=== PATIENT | female | born 1955 | race Caucasian/White ===

== ENCOUNTER 2020-06-29 10:24 | Inpatient (IN) | payer MEDICARE, MEDICAID, SELFPAY ==
[2020-06-29] VITALS (8 sets, daily range): BP systolic 86–154; BP diastolic 40–74; PULSE 59–75; RESP 9–18; TEMP 36.6–36.7; O2SAT 96–99; BMI 25.7
--- NOTE | 2020-06-29 11:10 | ED_ITS ---
HPI - Altered Mental Status General Chief Complaint: Weakness Stated Complaint: AMS,H/O DEMENTIA Time Seen by Provider: 06/29/20 11:07 Source: patient and EMS Mode of arrival: EMS Limitations: altered mental status History of Present Illness MD complaint: altered mental status Onset (ago): unknown (chronic) Severity: moderate Consistency of symptoms: waxing and waning Context: history of similar presentation Associated symptoms: other (reportedly BP was low in 80 or 70s this AM) Related Data Allergies Allergy/AdvReac Type Severity Reaction Status Date / Time No Known Allergies Allergy Verified 06/29/20 11:12 Review of Systems Review of Systems: ROS unable to be obtained due to altered mental status [facility] Past Medical History Attestation statement: The following information was validated with the patient. Medical History Altered mental status Alzheimer disease Diabetes type 2, uncontrolled Metabolic encephalopathy Social History Social History Smoking Status: Unknown if ever smoked Smoked in Last 30 Days: No Use of substances other than those prescribed or required for medical reasons: No Advance Directives: No Advance Directives Information Provided: Yes Physical Exam Vital Signs and I&O and Narrative: Vital Signs and I&O: Vital Signs Temp 97.9 F 06/29/20 13:13 Pulse 65 06/29/20 14:59 Resp 9 L 06/29/20 14:59 BP 127/62 06/29/20 14:59 Pulse Ox 98 06/29/20 14:59 Intake & Output 06/28/20 06/29/20 06/29/20 18:59 06:59 18:59 Weight 59.8 kg Body Mass Index 25.7 Const: General: cooperative, healthy appearing and no acute distress HENMT: Head: Yes normal to inspection Mouth: Normal oral and palatal mucosa present Eyes: General: appearance normal, both eyes and all related structures Pupils: Equal, round and reactive pupils present Neck: Neck: Yes normal visual inspection and Yes trachea midline Chest: Chest palpation & inspection: normal inspection of the chest Resp: Effort & Inspection: normal respiratory effort Auscultation: clear to auscultation bilaterally Cardio: Rate: regular rate Rhythm: regular rhythm Peripheral pulses: Peripheral pulses 2+ throughout GI: Palpation (GI): Soft to palpation and nontender Skin: General skin exam: no rashes or lesions noted Neuro: General: moves all extremities Cranial nerves: Yes Equal, round and reactive pupils present Motor exam (neuro): 5/5 motor strength present throughout Extrem: General: Yes no pedal edema Psych: Appearance: grossly normal Course Course Hospital Course: no obvious source of infection at this time, possible UTI suspected at 2:34pm, added on 2.5L of fluids and ceftriaxone her BP has dropped in the ED but remained asymptomatic, no other acute findings at this time, will admit for further workup Reevaluation(s) Reevaluation #1: BP stable at this time, no obvious cause of hypotension and lactic acidosis, will admit for further workup MDM - Altered Mental Status MDM Narrative Medical decision making narrative: AMS patient with hx of same reportedly had low BPs, currently BP normal, at this time will need labs, CXR, UA, gentle hydration Lab Data Result diagrams: 06/29/20 11:37 06/29/20 11:37 Labs: Lab Results 06/29/20 06/29/20 06/29/20 Range/Units 11:37 11:37 11:37 WBC 8.8 (4.8-10.8) X10*3/uL RBC 3.72 L (4.20-5.50) X10*6/uL Hgb 10.9 L (12.0-16.0) g/dl Hct 33.2 L (37-47) % MCV 89.2 (80-98) fL MCH 29.3 (27.0-33.0) pg MCHC 32.8 (31.0-35.0) g/dl RDW 14.3 (11.0-16.0) % Plt Count 337 (160-400) X10*3/uL MPV 9.8 (9.4-12.3) fL Immature Gran % (Auto) 0.3 (0.0-0.4) % Neut % (Auto) 73.4 H (45-73) % Lymph % (Auto) 18.5 L (20-40) % [place] % (Auto) 7.0 (2-11) % Eos % (Auto) 0.5 (0-4) % Baso % (Auto) 0.3 (0-2) % Neut # (Auto) 6.4 (2.0-8.3) X10*3/uL Lymph # (Auto) 1.6 (1.2-4.9) X10*3/uL [place] # (Auto) 0.6 (0.1-1.2) X10*3/uL Eos # (Auto) 0.0 (0.0-0.4) X10*3/uL Baso # (Auto) 0.0 (0.0-0.2) X10*3/uL Abs Immat Gran (auto) 0.03 (0.00-0.03) X10*3/uL Absolute Nucleated RBC 0.000 (0.0-0.012) X10*3/uL Nucleated RBC % (auto) 0.0 (0.0-0.2) /100WBC Hold Blue Top SEE NOTE Sodium 138 (135-145) mmol/L Potassium 5.2 H (3.3-5.1) mmol/l Chloride 106 (96-108) mmol/L Carbon Dioxide 23 (22-29) mmol/L Anion Gap 14 (12-20) BUN 15 (9-16) mg/dL Creatinine (0.5-1.4) mg/dL Estim Creat Clear Calc 53.8 Estimated GFR > 60 Random Glucose 222 H (60-115) mg/dL Lactic Acid (0.5-2.0) mmol/L Lactic Acid Fup @ 2Hr (0.5-2.0) mmol/L Calcium 9.4 (8.4-10.2) mg/dL Magnesium 1.2 L* (1.6-2.6) mg/dL Total Bilirubin 0.5 (0.0-1.0) mg/dL Direct Bilirubin 0.2 (0.0-0.5) mg/dL AST 13 (5-31) U/L ALT 17 (0-31) U/L Alkaline Phosphatase 61 (39-117) U/L Troponin I High Sens (<3.5-17.0) ng/L Total Protein 6.5 (6.5-8.0) g/dL Albumin 3.9 (3.5-5.0) g/dL Lipase 38 (8-78) U/L Urine Color Urine Appearance Urine pH (5.0-8.0) Ur Specific [place] (1.005-1.025) Urine Protein (NEG-TRACE) MG/DL Urine Glucose (UA) (NEG) MG/DL Urine Ketones (NEG) MG/DL Urine Blood (NEG) Urine Nitrite (NEG) Ur Leukocyte Esterase (NEG) 06/29/20 06/29/20 06/29/20 Range/Units 11:37 11:37 13:57 WBC (4.8-10.8) X10*3/uL RBC (4.20-5.50) X10*6/uL Hgb (12.0-16.0) g/dl Hct (37-47) % MCV (80-98) fL MCH (27.0-33.0) pg MCHC (31.0-35.0) g/dl RDW (11.0-16.0) % Plt Count (160-400) X10*3/uL MPV (9.4-12.3) fL Immature Gran % (Auto) (0.0-0.4) % Neut % (Auto) (45-73) % Lymph % (Auto) (20-40) % [place] % (Auto) (2-11) % Eos % (Auto) (0-4) % Baso % (Auto) (0-2) % Neut # (Auto) (2.0-8.3) X10*3/uL Lymph # (Auto) (1.2-4.9) X10*3/uL [place] # (Auto) (0.1-1.2) X10*3/uL Eos # (Auto) (0.0-0.4) X10*3/uL Baso # (Auto) (0.0-0.2) X10*3/uL Abs Immat Gran (auto) (0.00-0.03) X10*3/uL Absolute Nucleated RBC (0.0-0.012) X10*3/uL Nucleated RBC % (auto) (0.0-0.2) /100WBC Hold Blue Top Sodium (135-145) mmol/L Potassium (3.3-5.1) mmol/l Chloride (96-108) mmol/L Carbon Dioxide (22-29) mmol/L Anion Gap (12-20) BUN (9-16) mg/dL Creatinine (0.5-1.4) mg/dL Estim Creat Clear Calc Estimated GFR Random Glucose (60-115) mg/dL Lactic Acid 3.7 H* (0.5-2.0) mmol/L Lactic Acid Fup @ 2Hr (0.5-2.0) mmol/L Calcium (8.4-10.2) mg/dL Magnesium (1.6-2.6) mg/dL Total Bilirubin (0.0-1.0) mg/dL Direct Bilirubin (0.0-0.5) mg/dL AST (5-31) U/L ALT (0-31) U/L Alkaline Phosphatase (39-117) U/L Troponin I High Sens < 3.5 (<3.5-17.0) ng/L Total Protein (6.5-8.0) g/dL Albumin (3.5-5.0) g/dL Lipase (8-78) U/L Urine Color YELLOW Urine Appearance CLOUDY Urine pH 7.0 (5.0-8.0) Ur Specific [place] 1.015 (1.005-1.025) Urine Protein TRACE (NEG-TRACE) MG/DL Urine Glucose (UA) NEG (NEG) MG/DL Urine Ketones 5 (NEG) MG/DL Urine Blood NEG (NEG) Urine Nitrite NEG (NEG) Ur Leukocyte Esterase NEG (NEG) 06/29/20 Range/Units 14:01 WBC (4.8-10.8) X10*3/uL RBC (4.20-5.50) X10*6/uL Hgb (12.0-16.0) g/dl Hct (37-47) % MCV (80-98) fL MCH (27.0-33.0) pg MCHC (31.0-35.0) g/dl RDW (11.0-16.0) % Plt Count (160-400) X10*3/uL MPV (9.4-12.3) fL Immature Gran % (Auto) (0.0-0.4) % Neut % (Auto) (45-73) % Lymph % (Auto) (20-40) % [place] % (Auto) (2-11) % Eos % (Auto) (0-4) % Baso % (Auto) (0-2) % Neut # (Auto) (2.0-8.3) X10*3/uL Lymph # (Auto) (1.2-4.9) X10*3/uL [place] # (Auto) (0.1-1.2) X10*3/uL Eos # (Auto) (0.0-0.4) X10*3/uL Baso # (Auto) (0.0-0.2) X10*3/uL Abs Immat Gran (auto) (0.00-0.03) X10*3/uL Absolute Nucleated RBC (0.0-0.012) X10*3/uL Nucleated RBC % (auto) (0.0-0.2) /100WBC Hold Blue Top Sodium (135-145) mmol/L Potassium (3.3-5.1) mmol/l Chloride (96-108) mmol/L Carbon Dioxide (22-29) mmol/L Anion Gap (12-20) BUN (9-16) mg/dL Creatinine (0.5-1.4) mg/dL Estim Creat Clear Calc Estimated GFR Random Glucose (60-115) mg/dL Lactic Acid (0.5-2.0) mmol/L Lactic Acid Fup @ 2Hr 3.2 H* (0.5-2.0) mmol/L Calcium (8.4-10.2) mg/dL Magnesium (1.6-2.6) mg/dL Total Bilirubin (0.0-1.0) mg/dL Direct Bilirubin (0.0-0.5) mg/dL AST (5-31) U/L ALT (0-31) U/L Alkaline Phosphatase (39-117) U/L Troponin I High Sens (<3.5-17.0) ng/L Total Protein (6.5-8.0) g/dL Albumin (3.5-5.0) g/dL Lipase (8-78) U/L Urine Color Urine Appearance Urine pH (5.0-8.0) Ur Specific [place] (1.005-1.025) Urine Protein (NEG-TRACE) MG/DL Urine Glucose (UA) (NEG) MG/DL Urine Ketones (NEG) MG/DL Urine Blood (NEG) Urine Nitrite (NEG) Ur Leukocyte Esterase (NEG) ECG Data ECG #1: Attestation: I personally reviewed and interpreted this ECG as follows: Interpretation: normal sinus rhythm 62, low volate QRS normal p waves and rob, nonspecific ST T waves, no ischemia no artifact Discharge Plan Discharge Clinical Impression: Acute hypotension, Lactic acid acidosis Patient Disposition: Admitted As Inpatient
--- NOTE | 2020-06-29 11:10 | XR_ITS ---
EXAMINATION: XR CHEST, PORTABLE CLINICAL INFORMATION: Altered mental status COMPARISON: Report chest radiographs 10/08/2018, films unavailable TECHNIQUE: Portable upright AP view of the chest is performed. FINDINGS: The lungs are clear. The vascularity is normal. There is no vascular congestion, airspace consolidation, groundglass opacity. No effusion. The heart is normal in size. The hilar and mediastinal contours and visualized bony structures are unremarkable. IMPRESSION: Normal chest.
[2020-06-29 11:49] LABS: MANUAL DIFF FLAG NO
[2020-06-29 11:51] LABS: Basophils Percent Auto 0.3 % (0-2); Eosinophils Percent Auto 0.5 % (0-4); Hematocrit 33.2 % (37-47); Hemoglobin 10.9 g/dl (12.0-16.0); Imm Gran Abs Auto 0.03 X10*3/uL (0.00-0.03); Imm Gran Pct Auto 0.3 % (0.0-0.4); Lymphocytes Absolute Auto 1.6 X10*3/uL (1.2-4.9); Lymphocytes Percent Auto 18.5 % (20-40); Mean Corpuscular HGB Conc 32.8 g/dl (31.0-35.0); Mean Corpuscular Hemoglobin 29.3 pg (27.0-33.0); Mean Corpuscular Volume 89.2 fL (80-98); Mean Platelet Volume 9.8 fL (9.4-12.3); Monocytes Absolute Auto 0.6 X10*3/uL (0.1-1.2); Neutrophils Absolute Auto 6.4 X10*3/uL (2.0-8.3); Neutrophils Percent Auto 73.4 % (45-73); Platelet Count 337 X10*3/uL (160-400); Red Blood Count 3.72 X10*6/uL (4.20-5.50); Red Cell Distribution Width 14.3 % (11.0-16.0); White Blood Count 8.8 X10*3/uL (4.8-10.8)
[2020-06-29] MEDS: 0.9 % Sodium Chloride 500 ML IV (11:55)
[2020-06-29 12:16] LABS: Alanine Aminotransferase 17 U/L (0-31); Albumin Level 3.9 g/dL (3.5-5.0); Alkaline Phosphatase 61 U/L (39-117); Aspartate Amino Transferase 13 U/L (5-31); Bilirubin Direct 0.2 mg/dL (0.0-0.5); Bilirubin Total 0.5 mg/dL (0.0-1.0); Blood Urea Nitrogen 15 mg/dL (9-16); Calcium 9.4 mg/dL (8.4-10.2); Creatinine Clr Calc Pharmacy 53.8; Estimated Glomerular Filt Rate > 60; Glucose Random 222 mg/dL (60-115); Lactic Acid 3.7 mmol/L (0.5-2.0); Lipase 38 U/L (8-78); Total Protein 6.5 g/dL (6.5-8.0)
[2020-06-29 12:17] LABS: Troponin-I High Sensitivity < 3.5 ng/L (<3.5-17.0)
[2020-06-29 12:31] LABS: Anion Gap 14 (12-20); Carbon Dioxide 23 mmol/L (22-29); Chloride 106 mmol/L (96-108); Magnesium 1.2 mg/dL (1.6-2.6); Potassium 5.2 mmol/l (3.3-5.1); Sodium 138 mmol/L (135-145)
[2020-06-29] MEDS: 0.9 % Sodium Chloride 500 ML 999 ML IV (13:12)
[2020-06-29] MEDS: Magnesium Sulfate/H2O 2 GM/50 ML PIGGYBACK IV (13:25)
--- NOTE | 2020-06-29 13:26 | PC.NURSE ---
PT IN BED APPEARS AT BASELINE IV FLUIDS INFUSING
[2020-06-29 13:47] LABS: Reflex Lactate? Lactic Acid Added
--- NOTE | 2020-06-29 13:51 | PC.NURSE ---
[facility] staff update of pts status
[2020-06-29 14:25] LABS: Glucose Urine UA NEG (NEG); Leukocyte Esterase Urine NEG (NEG); Nitrite Urine NEG (NEG); Specific Gravity - Urine 1.015 (1.005-1.025); Urine Blood NEG (NEG); Urine Ketones 5 MG/DL (NEG); Urine Protein TRACE MG/DL (NEG-TRACE)
[2020-06-29 14:30] LABS: Appearance Urine CLOUDY; Color Urine YELLOW
[2020-06-29] MEDS: 0.9 % Sodium Chloride 500 ML 1000 ML IV (14:43)
[2020-06-29 14:49] LABS: ~Lactic Acid-LAB USE ONLY 3.2 mmol/L (0.5-2.0)
[2020-06-29] MEDS: cefTRIAXone sodium 1 GM in 0.9 % Sodium Chloride 50 ML IV (14:50)
--- NOTE | 2020-06-29 15:26 | PC.NURSE ---
call made down to lab. microscopic ua added to urinalysis.
[2020-06-29 15:39] LABS: Bacteria Urine 2+ /LPF; RBC Urine 0-2 /HPF (0); Squamous Epithelial Cell Urine 1+ /LPF; Triple Phosphate Crystal Urine 1+ /LPF
[2020-06-29 15:40] LABS: Amorphous Sediment Urine 2+ /LPF
[2020-06-29 16:03] LABS: Reflex Lactate? 2 Y
[2020-06-29 16:17] LABS: ~Lactic Acid-LAB USE ONLY 2.7 mmol/L (0.5-2.0)
--- NOTE | 2020-06-29 16:56 | PC.NURSE ---
hospitalist to bedside. pt needs frequent repositioning in bed. alert but not oriented to person, place or time. active hallucinations, easily redirectable. expecting order for admission.
--- NOTE | 2020-06-29 17:16 | PM.IMHP ---
History of Present Illness Date of Service: 06/29/20 Chief Complaint: sent from SNF for change in mental status This is a 65-year-old female with a past medical history as documented below who is a resident at [facility] where it was noted that the patient had changes in her mental status and as such she was sent to the emergency room. Due to the patient's baseline dementia as well as current confusion history is basically obtained from the ED providers report and notes. Apparently, earlier on the day of admission patient was more confused than her baseline self. There were some reports of unresponsiveness but no further details regarding this. Additionally, some reports of low blood pressure at the halfway facility as well. Upon arrival to the emergency room, patient to underwent basic workup including a UA which was possibly suggestive of urinary tract infection. She had low blood pressure readings in the emergency room which responded to fluid boluses. Her lactate was also elevated greater than 3 but down trending after fluids. She was given a dose of ceftriaxone and admission was requested. Patient is seen and examined the emergency room. She is completely disoriented, even to self. He denies any pain however. Review of Systems Review of Systems: Yes Unobtainable due to mental status Neurologic: Reports confusion Psychiatric: Psychiatric: Reports confusion [facility] Medical History (Updated 06/29/20 @ 17:50 by Chance Harrington MD) Altered mental status Alzheimer disease Diabetes type 2, uncontrolled Hypertension Metabolic encephalopathy NSTEMI (non-ST elevated myocardial infarction) Pertinent family history: unable to obtain, due to mental status chart review shows DM in brother and father Social History Smoking Status: Unknown if ever smoked Smoked in Last 30 Days: No Use of substances other than those prescribed or required for medical reasons: No Advance Directives: No Advance Directives Information Provided: Yes Meds Allergies Allergy/AdvReac Type Severity Reaction Status Date / Time No Known Allergies Allergy Verified 06/29/20 11:12 Home Medications Medication Instructions Recorded Confirmed Type acetaminophen 650 mg PO Q6H PRN 06/29/20 06/29/20 History aspirin 81 mg PO DAILY 06/29/20 06/29/20 History atorvastatin 80 mg PO BEDTIME 06/29/20 06/29/20 History bisacodyl 10 mg ND DAILY PRN 06/29/20 06/29/20 History clopidogrel 75 mg PO DAILY 06/29/20 06/29/20 History docusate sodium 100 mg PO BID 06/29/20 06/29/20 History insulin glargine [Lantus U-100 12 unit SUBCUT QPM 06/29/20 06/29/20 History Insulin] insulin lispro [Humalog U-100 1 sliding scale dose SUBCUT 06/29/20 06/29/20 History Insulin] USEASDIRECTD isosorbide mononitrate [Imdur] 30 mg PO DAILY 06/29/20 06/29/20 History magnesium hydroxide [Milk of 30 ml PO BEDTIME PRN 06/29/20 06/29/20 History Magnesia] memantine 5 mg PO QPM 06/29/20 06/29/20 History metformin 1,000 mg PO BID 06/29/20 06/29/20 History metoprolol tartrate 25 mg PO BID 06/29/20 06/29/20 History polyethylene glycol 3350 [Miralax] 17 g PO DAILY 06/29/20 06/29/20 History Physical Exam Vital Signs and Narrative: Vital Signs: Last Vital Signs Temp 97.9 F 06/29/20 13:13 Pulse 65 06/29/20 14:59 Resp 9 L 06/29/20 14:59 BP 127/62 06/29/20 14:59 Pulse Ox 98 06/29/20 14:59 Body Mass Index 25.7 Const: General: cooperative, healthy appearing, no acute distress and confusion Orientation/consciousness: confusion Eyes: Pupils: Equal, round and reactive pupils present Neck: Yes supple Chest: Chest palpation & inspection: normal inspection of the chest Resp: Effort & Inspection: normal respiratory effort and able to speak in complete sentences Auscultation: clear to auscultation bilaterally Cardio: Jugular venous distension: no JVD Rhythm: regular rhythm Heart sounds: S1 normal heart sound present and S2 normal heart sound present GI: Inspection: Yes normal to inspection Palpation (GI): Soft to palpation Auscultation: normal bowel sounds Skin: General skin exam: no rashes or lesions noted Neuro: General: confusion Cranial nerves: Yes Equal, round and reactive pupils present Motor exam (neuro): Other motor observations present ( no motor deficit) Results Labs Labs: Laboratory Tests 06/29/20 06/29/20 06/29/20 11:37 11:37 11:37 WBC 8.8 RBC 3.72 L Hgb 10.9 L Hct 33.2 L MCV 89.2 MCH 29.3 MCHC 32.8 RDW 14.3 Plt Count 337 MPV 9.8 Immature Gran % (Auto) 0.3 Neut % (Auto) 73.4 H Lymph % (Auto) 18.5 L [place] % (Auto) 7.0 Eos % (Auto) 0.5 Baso % (Auto) 0.3 Neut # (Auto) 6.4 Lymph # (Auto) 1.6 [place] # (Auto) 0.6 Eos # (Auto) 0.0 Baso # (Auto) 0.0 Abs Immat Gran (auto) 0.03 Absolute Nucleated RBC 0.000 Nucleated RBC % (auto) 0.0 Hold Blue Top SEE NOTE Sodium 138 Potassium 5.2 H Chloride 106 Carbon Dioxide 23 Anion Gap 14 BUN 15 Creatinine Estim Creat Clear Calc 53.8 Estimated GFR > 60 Random Glucose 222 H Lactic Acid Lactic Acid Fup @ 2Hr Lactic Acid Fup @ 4Hr Calcium 9.4 Magnesium 1.2 L* Total Bilirubin 0.5 Direct Bilirubin 0.2 AST 13 ALT 17 Alkaline Phosphatase 61 Troponin I High Sens Total Protein 6.5 Albumin 3.9 Lipase 38 Urine Color Urine Appearance Urine pH Ur Specific [place] Urine Protein Urine Glucose (UA) Urine Ketones Urine Blood Urine Nitrite Ur Leukocyte Esterase Urine RBC Urine WBC Ur Squamous Epith Cells Triple Phos Crystals Amorphous Sediment Urine Bacteria 06/29/20 06/29/20 06/29/20 11:37 11:37 13:57 WBC RBC Hgb Hct MCV MCH MCHC RDW Plt Count MPV Immature Gran % (Auto) Neut % (Auto) Lymph % (Auto) [place] % (Auto) Eos % (Auto) Baso % (Auto) Neut # (Auto) Lymph # (Auto) [place] # (Auto) Eos # (Auto) Baso # (Auto) Abs Immat Gran (auto) Absolute Nucleated RBC Nucleated RBC % (auto) Hold Blue Top Sodium Potassium Chloride Carbon Dioxide Anion Gap BUN Creatinine Estim Creat Clear Calc Estimated GFR Random Glucose Lactic Acid 3.7 H* Lactic Acid Fup @ 2Hr Lactic Acid Fup @ 4Hr Calcium Magnesium Total Bilirubin Direct Bilirubin AST ALT Alkaline Phosphatase Troponin I High Sens < 3.5 Total Protein Albumin Lipase Urine Color YELLOW Urine Appearance CLOUDY Urine pH 7.0 Ur Specific [place] 1.015 Urine Protein TRACE Urine Glucose (UA) NEG Urine Ketones 5 Urine Blood NEG Urine Nitrite NEG Ur Leukocyte Esterase NEG Urine RBC 0-2 Urine WBC 5-9 H Ur Squamous Epith Cells 1+ Triple Phos Crystals 1+ Amorphous Sediment 2+ Urine Bacteria 2+ 06/29/20 06/29/20 14:01 15:19 WBC RBC Hgb Hct MCV MCH MCHC RDW Plt Count MPV Immature Gran % (Auto) Neut % (Auto) Lymph % (Auto) [place] % (Auto) Eos % (Auto) Baso % (Auto) Neut # (Auto) Lymph # (Auto) [place] # (Auto) Eos # (Auto) Baso # (Auto) Abs Immat Gran (auto) Absolute Nucleated RBC Nucleated RBC % (auto) Hold Blue Top Sodium Potassium Chloride Carbon Dioxide Anion Gap BUN Creatinine Estim Creat Clear Calc Estimated GFR Random Glucose Lactic Acid Lactic Acid Fup @ 2Hr 3.2 H* Lactic Acid Fup @ 4Hr 2.7 H* Calcium Magnesium Total Bilirubin Direct Bilirubin AST ALT Alkaline Phosphatase Troponin I High Sens Total Protein Albumin Lipase Urine Color Urine Appearance Urine pH Ur Specific [place] Urine Protein Urine Glucose (UA) Urine Ketones Urine Blood Urine Nitrite Ur Leukocyte Esterase Urine RBC Urine WBC Ur Squamous Epith Cells Triple Phos Crystals Amorphous Sediment Urine Bacteria Assessment and Plan (1) Acute UTI: Status: Acute (2) Primary hypomagnesemia: Status: Acute (3) Lactic acid acidosis: Status: Acute This is a 65-year-old female with a past medical history of Alzheimer's dementia, appears to be advanced to presents from halfway facility with complaints of worsening baseline confusion along with low blood pressure. She is admitted for urinary tract infection 1. UTI rocephin f/u culures 2. LA / Hypotension improved with fluids monitor 3. Toxic/Metabolic encephalopathy due to above + baseline dementia hopefully will improve with treatment of uti 4. DM diabetic diet POC QIDAC 5. HTN hold bp meds 6. HypoMg repleted in the ED check tomorrow Full Code DVT pptx, subcut. heparin
--- NOTE | 2020-06-29 17:26 | PC.NURSE ---
CALL MADE OUT OUT TO [facility] FOR REPORT
[2020-06-29 21:30] LABS: Glucose, Whole Blood 77 mg/dL (60-115)
[2020-06-29] MEDS: Heparin Sodium,Porcine 5,000 UNIT/ML VIAL 5000 UNIT SUBCUT (21:52)
[2020-06-29] MEDS: Atorvastatin Calcium 80 MG TABLET PO (21:52)
[2020-06-29] MEDS: Docusate Sodium 100 MG CAPSULE PO (21:54)
[2020-06-29] MEDS: Memantine HCl 5 MG TABLET PO (22:05)
[2020-06-30 00:45] VITALS: BP 142/70; PULSE 66; RESP 16; TEMP 36.1; O2SAT 99
[2020-06-30] MEDS: 0.9 % Sodium Chloride Flush 3 ML SYRINGE 2 ML IVFLUSH ×2 (03:29→09:09)
[2020-06-30 03:32] VITALS: BP 134/64; PULSE 75; RESP 17; O2SAT 100
[2020-06-30 04:00] VITALS: BP 134/68; PULSE 69; RESP 16; TEMP 36.5; O2SAT 97
[2020-06-30 05:27] LABS: MANUAL DIFF FLAG NO
[2020-06-30 05:32] LABS: Basophils Percent Auto 0.5 % (0-2); Eosinophils Absolute Auto 0.1 X10*3/uL (0.0-0.4); Eosinophils Percent Auto 1.1 % (0-4); Hematocrit 31.8 % (37-47); Hemoglobin 10.7 g/dl (12.0-16.0); Imm Gran Abs Auto 0.01 X10*3/uL (0.00-0.03); Imm Gran Pct Auto 0.2 % (0.0-0.4); Lymphocytes Absolute Auto 1.8 X10*3/uL (1.2-4.9); Lymphocytes Percent Auto 33.2 % (20-40); Mean Corpuscular HGB Conc 33.6 g/dl (31.0-35.0); Mean Corpuscular Hemoglobin 29.6 pg (27.0-33.0); Mean Corpuscular Volume 87.8 fL (80-98); Mean Platelet Volume 10.1 fL (9.4-12.3); Monocytes Absolute Auto 0.5 X10*3/uL (0.1-1.2); Monocytes Percent Auto 8.4 % (2-11); Neutrophils Absolute Auto 3.1 X10*3/uL (2.0-8.3); Neutrophils Percent Auto 56.6 % (45-73); Platelet Count 310 X10*3/uL (160-400); Red Blood Count 3.62 X10*6/uL (4.20-5.50); Red Cell Distribution Width 14.4 % (11.0-16.0); White Blood Count 5.5 X10*3/uL (4.8-10.8)
[2020-06-30 06:10] LABS: Anion Gap 13 (12-20); Blood Urea Nitrogen 10 mg/dL (9-16); Calcium 8.8 mg/dL (8.4-10.2); Carbon Dioxide 22 mmol/L (22-29); Chloride 107 mmol/L (96-108); Creatinine Clr Calc Pharmacy 71.1; Estimated Glomerular Filt Rate > 60; Glucose Random 97 mg/dL (60-115); Potassium 3.7 mmol/l (3.3-5.1); Sodium 138 mmol/L (135-145)
[2020-06-30 07:34] LABS: Glucose, Whole Blood 104 mg/dL (60-115)
[2020-06-30 08:00] VITALS: BP 153/69; PULSE 70; RESP 18; TEMP 36.6; O2SAT 100
[2020-06-30 08:27] LABS: Glucose, Whole Blood 116 mg/dL (60-115)
[2020-06-30] MEDS: Docusate Sodium 100 MG CAPSULE PO (09:08)
[2020-06-30] MEDS: Isosorbide Mononitrate 30 MG TAB.ER.24H PO (09:08)
[2020-06-30] MEDS: Aspirin 81 MG TAB.CHEW PO (09:08)
[2020-06-30] MEDS: Clopidogrel Bisulfate 75 MG TABLET PO (09:09)
[2020-06-30] MEDS: Heparin Sodium,Porcine 5,000 UNIT/ML VIAL 5000 UNIT SUBCUT (09:09)
[2020-06-30] MEDS: polyethylene glycoL 3350 17 GM POWD.PACK PO (11:09)
[2020-06-30 11:31] LABS: Glucose, Whole Blood 171 mg/dL (60-115)
[2020-06-30 12:00] VITALS: BP 116/63; PULSE 83; RESP 18; TEMP 36.7; O2SAT 99
[2020-06-30] MEDS: Insulin Lispro 100 UNIT/ML 3 ML VIAL SUBCUT (12:15)
--- NOTE | 2020-06-30 12:48 | PM.DS ---
DS: Providers Provider Date of admission: 06/29/20 17:33 Primary care physician: Unknown Physician DS: Diagnosis Discharge Diagnosis (1) Acute UTI: Status: Acute (2) Primary hypomagnesemia: Status: Acute (3) Lactic acid acidosis: Status: Acute (4) Toxic encephalopathy: Status: Acute DS: Summary Hospital Course Hospital Course: 65-year-old female with dementia, resident at [facility] where it was noted that the patient had changes in her mental status and as such she was sent to the emergency room. Due to the patient's baseline dementia as well as current confusion history is basically obtained from the ED providers report and notes. Apparently, earlier on the day of admission patient was more confused than her baseline self. There were some reports of unresponsiveness but no further details regarding this. Additionally, some reports of low blood pressure at the shelter facility as well. Upon arrival to the emergency room, patient to underwent basic workup including a UA which was possibly suggestive of urinary tract infection. She had low blood pressure readings in the emergency room which responded to fluid boluses. Her lactate was also elevated greater than 3 but down trending after fluids. She was given a dose of ceftriaxone and admission was requested. Patient is seen and examined the emergency room. She is completely disoriented, even to self. He denies any pain however. Hospital Course: 1. UTI--treated with IV Ceftriaxone and IVF for sepsis component with hypotension. Sepsis has resolved. She is afebrile now and will transition to Oral Ceftin for 7 days. 2. Hypotension due to sepsis this has resolved. 3. Hypomagnesemai--replacing with IV mag and will discharge with oral magnesium. Magnesium level is now 2 4. Encephalopathy-- due to UTI, at baseline Time Spent with Patient Time attestation: Total time spent providing and/or coordinating discharge services: Physical Exam Vital Signs and I&O and Narrative: Vital Signs and I&O: Vital Signs Temp 98.1 F 06/30/20 12:00 Pulse 83 06/30/20 12:00 Resp 18 06/30/20 12:00 BP 116/63 06/30/20 12:00 Pulse Ox 99 06/30/20 12:00 DS: Data Data Completed and Pending Labs on day of discharge: Labs from last 24 hours 06/30/20 06/30/20 06/30/20 11:28 08:24 07:26 WBC RBC Hgb Hct MCV MCH MCHC RDW Plt Count MPV Immature Gran % (Auto) Neut % (Auto) Lymph % (Auto) [place] % (Auto) Eos % (Auto) Baso % (Auto) Neut # (Auto) Lymph # (Auto) [place] # (Auto) Eos # (Auto) Baso # (Auto) Abs Immat Gran (auto) Absolute Nucleated RBC Nucleated RBC % (auto) Sodium Potassium Chloride Carbon Dioxide Anion Gap BUN Creatinine Estim Creat Clear Calc Estimated GFR POC Glucose 171 H 116 H 104 Random Glucose Lactic Acid Fup @ 2Hr Lactic Acid Fup @ 4Hr Calcium Urine Color Urine Appearance Urine pH Ur Specific [place] Urine Protein Urine Glucose (UA) Urine Ketones Urine Blood Urine Nitrite Ur Leukocyte Esterase Urine RBC Urine WBC Ur Squamous Epith Cells Triple Phos Crystals Amorphous Sediment Urine Bacteria 06/30/20 06/30/20 06/29/20 05:06 05:06 21:26 WBC 5.5 RBC 3.62 L Hgb 10.7 L Hct 31.8 L MCV 87.8 MCH 29.6 MCHC 33.6 RDW 14.4 Plt Count 310 MPV 10.1 Immature Gran % (Auto) 0.2 Neut % (Auto) 56.6 Lymph % (Auto) 33.2 [place] % (Auto) 8.4 Eos % (Auto) 1.1 Baso % (Auto) 0.5 Neut # (Auto) 3.1 Lymph # (Auto) 1.8 [place] # (Auto) 0.5 Eos # (Auto) 0.1 Baso # (Auto) 0.0 Abs Immat Gran (auto) 0.01 Absolute Nucleated RBC 0.000 Nucleated RBC % (auto) 0.0 Sodium 138 Potassium 3.7 D Chloride 107 Carbon Dioxide 22 Anion Gap 13 BUN 10 Creatinine 0.62 Estim Creat Clear Calc 71.1 Estimated GFR > 60 POC Glucose 77 Random Glucose 97 D Lactic Acid Fup @ 2Hr Lactic Acid Fup @ 4Hr Calcium 8.8 Urine Color Urine Appearance Urine pH Ur Specific [place] Urine Protein Urine Glucose (UA) Urine Ketones Urine Blood Urine Nitrite Ur Leukocyte Esterase Urine RBC Urine WBC Ur Squamous Epith Cells Triple Phos Crystals Amorphous Sediment Urine Bacteria 06/29/20 06/29/20 06/29/20 15:19 14:01 13:57 WBC RBC Hgb Hct MCV MCH MCHC RDW Plt Count MPV Immature Gran % (Auto) Neut % (Auto) Lymph % (Auto) [place] % (Auto) Eos % (Auto) Baso % (Auto) Neut # (Auto) Lymph # (Auto) [place] # (Auto) Eos # (Auto) Baso # (Auto) Abs Immat Gran (auto) Absolute Nucleated RBC Nucleated RBC % (auto) Sodium Potassium Chloride Carbon Dioxide Anion Gap BUN Creatinine Estim Creat Clear Calc Estimated GFR POC Glucose Random Glucose Lactic Acid Fup @ 2Hr 3.2 H* Lactic Acid Fup @ 4Hr 2.7 H* Calcium Urine Color YELLOW Urine Appearance CLOUDY Urine pH 7.0 Ur Specific [place] 1.015 Urine Protein TRACE Urine Glucose (UA) NEG Urine Ketones 5 Urine Blood NEG Urine Nitrite NEG Ur Leukocyte Esterase NEG Urine RBC 0-2 Urine WBC 5-9 H Ur Squamous Epith Cells 1+ Triple Phos Crystals 1+ Amorphous Sediment 2+ Urine Bacteria 2+ 06/29/20 11:37 WBC RBC Hgb Hct MCV MCH MCHC RDW Plt Count MPV Immature Gran % (Auto) Neut % (Auto) Lymph % (Auto) [place] % (Auto) Eos % (Auto) Baso % (Auto) Neut # (Auto) Lymph # (Auto) [place] # (Auto) Eos # (Auto) Baso # (Auto) Abs Immat Gran (auto) Absolute Nucleated RBC Nucleated RBC % (auto) Sodium Potassium Chloride Carbon Dioxide Anion Gap BUN Creatinine Estim Creat Clear Calc Estimated GFR POC Glucose Random Glucose Lactic Acid Fup @ 2Hr Lactic Acid Fup @ 4Hr Calcium Urine Color Urine Appearance Urine pH Ur Specific [place] Urine Protein Urine Glucose (UA) Urine Ketones Urine Blood Urine Nitrite Ur Leukocyte Esterase Urine RBC Urine WBC Ur Squamous Epith Cells Triple Phos Crystals Amorphous Sediment Urine Bacteria Preliminary micro results at discharge 06/29/20 16:00 Urine Culture - Preliminary Urine clean catch - Clean Catch Midstream Gram negative marshall Discharge Plan Discharge Anticipated Discharge Date/Time: 06/30/20 12:34 Patient Disposition: Xfer SNF Referrals: [facility] [Outside] (RETURN TO [facility] TODAY ) Physician,Unknown [Primary Care Provider] - Discharge Medications: New cefuroxime axetil 500 mg tablet 500 mg PO BID 7 Days Qty: 14 RF: 0 Continued atorvastatin 80 mg Tablet 80 mg PO BEDTIME RF: 0 acetaminophen 325 mg Tablet 650 mg PO Q6H PRN (Reason: Mild Pain (Scale Score 1-4)) RF: 0 Lantus U-100 Insulin 100 unit/mL Solution 12 unit SUBCUT QPM RF: 0 polyethylene glycol 3350 [Miralax] 17 gram Powder In Packet 17 g PO DAILY RF: 0 isosorbide mononitrate [Imdur] 30 mg Tablet Extended Release 24 Hr 30 mg PO DAILY RF: 0 clopidogrel 75 mg Tablet 75 mg PO DAILY RF: 0 magnesium hydroxide [Milk of Magnesia] 400 mg/5 mL Suspension 30 ml PO BEDTIME PRN (Reason: Constipation) RF: 0 bisacodyl 10 mg Suppository 10 mg TX DAILY PRN (Reason: Constipation) RF: 0 metformin 1,000 mg Tablet 1,000 mg PO BID RF: 0 docusate sodium 100 mg Capsule 100 mg PO BID RF: 0 aspirin 81 mg Tablet 81 mg PO DAILY RF: 0 insulin lispro [Humalog U-100 Insulin] 100 unit/mL Solution 1 sliding scale dose SUBCUT USEASDIRECTD RF: 0 memantine 5 mg Tablet 5 mg PO QPM RF: 0 metoprolol tartrate 25 mg Tablet 25 mg PO BID RF: 0 Discharge Orders: Discharge Order (Routine); Ordered 06/30/20 Ordered By: García Morley Diet: advance to your usual diet Activity on Discharge: As tolerated Visit Report Forms: Patient Portal Discharge page Care Plan Goals: Resolution of UTI and prevent rehospitalization Health Concerns: UTI Plan of Treatment: Take Ceftin as directed and follow up with your Doctor in a week
--- NOTE | 2020-06-30 13:48 | MHC.CM.PN ---
PT WILL DISCHARGE BACK TO [facility] TODAY AT 1700 HOURS VIA [facility]. CM CONTACTED PTS ERIC HAMILTON AND INFORMED HER OF PTS DC. IMM DELIVERED
[2020-06-30] MEDS: cefTRIAXone sodium 1 GM in 0.9 % Sodium Chloride 50 ML IV (13:59)
[2020-06-30 14:00] LABS: Lactic Acid 2.3 mmol/L (0.5-2.0)
[2020-06-30 14:13] LABS: Magnesium 1.5 mg/dL (1.6-2.6)
[2020-06-30 15:21] LABS: Magnesium 1.5 mg/dL (1.6-2.6)
[2020-06-30 15:27] LABS: Reflex Lactate? Lactic Acid Added
[2020-06-30 16:00] VITALS: BP 143/79; PULSE 72; RESP 18; TEMP 36.6; O2SAT 99
[2020-06-30 16:17] LABS: ~Lactic Acid-LAB USE ONLY 1.9 mmol/L (0.5-2.0)
[2020-06-30 17:12] LABS: Glucose, Whole Blood 142 mg/dL (60-115)
[2020-06-30 17:23] LABS: Glucose, Whole Blood 142 mg/dL (60-115)
== END 2020-06-30 17:45 | disposition skilled nursing facility (03) | DRG 689 ==
LOC: HO.ED 15:49 → HO.IMC 17:34
PROVIDERS: Admitting Provider Family Medicine; Emergency Provider Emergency Medicine; Visit Provider Internal Medicine
DX: N39.0 Urinary tract infection, site not specified (principal); G92 Toxic encephalopathy; E87.2 Acidosis; I95.9 Hypotension, unspecified; E11.9 Type 2 diabetes mellitus without complications; I10 Essential (primary) hypertension; E83.42 Hypomagnesemia; G30.9 Alzheimer's disease, unspecified; F02.80 Dementia in other diseases classified elsewhere, unspecified severity, without behavioral disturbance, psychotic disturbance, mood disturbance, and anxiety; Z79.4 Long term (current) use of insulin; Z79.02 Long term (current) use of antithrombotics/antiplatelets; Z79.82 Long term (current) use of aspirin; Z79.899 Other long term (current) drug therapy
CPT/HCPCS: 36415; 71045; 80048; 80076; 81003; 81015; 82947; 83605; 83690; 83735; 84484; 85025; 87040; 87086; 87186; 96361; 96365; 96367; 99284; 99285; J0696

== ENCOUNTER 2022-07-01 10:53 | Inpatient (IN) | payer MEDICARE, MEDICAID, SELFPAY ==
--- NOTE | ~2022-07-01 | XR_ITS ---
EXAMINATION: XR CHEST CLINICAL INFORMATION: Altered mental status. COMPARISON: 06/29/2020 chest radiograph. TECHNIQUE: Frontal view of the chest was obtained. FINDINGS: No significant abnormality is noted involving the heart, lungs, mediastinum, bony thorax or soft tissues. XR/XR chest 1V IMPRESSION: No acute cardiopulmonary process.
--- NOTE | ~2022-07-01 | CT_ITS ---
EXAMINATION: CT HEAD WITHOUT CONTRAST CLINICAL INFORMATION: Unresponsive COMPARISON: PET/CT 02/03/2019 TECHNIQUE: Imaging was performed from the skull base to vertex without intravenous administration of contrast. This CT examination was performed using dose optimization techniques as appropriate, variously including the following: *Automated exposure control *Adjustment of mA and/or kV according to patient size (this includes techniques or standardized protocols for targeted exams where dose is matched to indication/reason for exam; i.e. extremities or head) *Use of iterative reconstruction technique Total exam dose length product: 733 mGy-cm FINDINGS: No intra or extra-axial fluid collection, hemorrhage, or mass. No ventriculomegaly. No midline shift or herniation. Basal cisterns are patent. Kan-white matter differentiation is maintained. No territorial encephalomalacia. Proportional prominence of the ventricles and sulcal spaces is consistent with moderate volume loss. Patchy periventricular and deep white matter hypoattenuation is consistent with moderate small vessel ischemic changes. Small focus of hypoattenuation compatible with prior lacunar infarct in the left lentiform nucleus, unchanged. Small remote infarct in the right cerebellar hemisphere, also unchanged. No calvarial fracture or soft tissue abnormality. The mastoid air cells and visualized portions of the paranasal sinuses are well aerated. CT/CT head/brain wo IV con IMPRESSION: 1. No acute intracranial pathology.
--- NOTE | 2022-07-01 10:58 | ECG_ITS ---
Test Reason : ams Blood Pressure : / mmHG Vent. Rate : 065 BPM Atrial Rate : 065 BPM P-R Int : 136 ms QRS Dur : 062 ms QT Int : 408 ms P-R-T Axes : 067 028 066 degrees QTc Int : 424 ms Normal sinus rhythm Low voltage QRS Borderline ECG When compared with ECG of 29-JUN-2020 11:20, No significant change was found Referred By: Erin Stephenson Electronically Signed By:ABRAHAN KRUGER
--- NOTE | 2022-07-01 11:00 | ED.AMS ---
HPI - Altered Mental Status General Chief Complaint: Altered Mental Status Stated Complaint: UNRESPONSIVE Time Seen by Provider: 07/01/22 10:58 Source: EMS and old records reviewed Mode of arrival: EMS Limitations: altered mental status History of Present Illness HPI narrative: 67 yo year old female with history of early-onset Alzheimer's dementia, HTN, HLD, diabetes, CVA who presents to the ER for evaluation of altered mental status, hypotension and hypoxia. Patient had her morning meds around 09:30 at her nursing facility. Patient was found shortly thereafter minimally responsive with low blood pressure and low oxygen saturations. At baseline she is altered, withdraws to pain. On EMS arrival patient had blood pressure 90/50s, IV was established and IV fluids were started. POC was 200. On arrival to the ER patient is afebrile and hemodynamically stable. She is withdrawing to painful stimuli and grimacing to sternal rub. Not opening eyes or following commands. MD complaint: altered mental status Onset (ago): minute(s) Timing confirmed by: caregiver Severity: severe Consistency of symptoms: constant Treatments prior to arrival: IV fluid Related Data Home Medications Medication Instructions Recorded Confirmed acetaminophen 325 mg tablet 650 mg PO Q12H PRN Mild Pain 06/29/20 07/01/22 (Scale Score 1-4) atorvastatin 80 mg tablet 80 mg PO BEDTIME 06/29/20 07/01/22 bisacodyl 10 mg rectal suppository 10 mg VT DAILY PRN Constipation 06/29/20 07/01/22 clopidogrel 75 mg tablet 75 mg PO DAILY 06/29/20 07/01/22 docusate sodium 100 mg capsule 100 mg PO BID 06/29/20 07/01/22 insulin glargine 100 unit/mL 12 unit subcut DAILY 06/29/20 07/01/22 subcutaneous solution (Lantus U-100 Insulin) isosorbide mononitrate 30 mg 30 mg PO DAILY 06/29/20 07/01/22 tablet,extended release 24 hr magnesium hydroxide 400 mg/5 mL 30 ml PO DAILY PRN Constipation 06/29/20 07/01/22 oral suspension (Milk of Magnesia) metformin 1,000 mg tablet 1,000 mg PO BID 06/29/20 07/01/22 metoprolol tartrate 25 mg tablet 25 mg PO BID 06/29/20 07/01/22 polyethylene glycol 3350 17 gram 17 g PO DAILY 06/29/20 07/01/22 oral powder packet (Miralax) aspirin 81 mg tablet,delayed 81 mg PO DAILY 07/01/22 07/01/22 release lidocaine 4 % topical patch 1 patch topical DAILY 07/01/22 07/01/22 magnesium 200 mg tablet 400 mg PO DAILY@0700,1400,2000 07/01/22 07/01/22 Allergies Allergy/AdvReac Type Severity Reaction Status Date / Time No Known Allergies Allergy Verified 06/29/20 11:12 Review of Systems Review of Systems: Yes Unobtainable due to mental status [facility] Past Medical History Medical History (Updated 07/01/22 @ 15:03 by DOMINGA Causey) Altered mental status Alzheimer disease Diabetes type 2, uncontrolled Hypertension Lactic acid acidosis Metabolic encephalopathy NSTEMI (non-ST elevated myocardial infarction) Social History Social History Household Members: None Housing: [facility] Advance Directives: No Advance Directives Information Provided: Yes service: No Current occupational status: disabled Physical Exam ED Vital Signs: Vital Signs - 24 hr 07/01/22 11:02 07/01/22 12:00 07/01/22 13:26 Temperature 98.5 F Pulse Rate 69 66 69 Respiratory Rate 24 H 16 14 Blood Pressure 132/56 L 132/55 L 138/66 Pulse Oximetry 97 97 98 Oxygen Delivery Method Room Air Room Air Room Air BMI result Body Mass Index 23.8 Appearance: minimally responsive elderly female, no distress Eyes: Pupils equal, round and reactive to light. ENT: Pharynx normal. Neck: Normal inspection. Neck supple. CVS: Normal heart rate and rhythm. Pulses normal. Respiratory: No respiratory distress. Breath sounds normal. Abdomen: Soft and nontender. +BS x4 Skin: Skin warm and dry. Normal skin color. Normal skin turgor. No rashes. Extremities: thin frail extremities, no lower extremity edema, cool to the touch with 2+ distal pulses. Neuro: lethargic, withdraws to pain, moves all extremities, non verbal. GCS 6 Course Course Course Narrative: 67 yo female with history of early onset Alzhemier's dementia, DM, HTN, HLD, CVA, hx sepsis w/ encephalopathy presenting from SNF minimally responsive, hypotesnive and hypoxic (unknown, arrives on O2). She is hemodynamically stable on arrival but altered, grimacing to sternal rub and noxious stimuli. She is protecting her airway. Afebrile. Will get CT head, metabolic workup. IVF ordered. Will call SNF and see what her baseline mental status is. Reevaluation(s) Reevaluation #1: Spoke with nurse at SNF - at baseline she is sitting up in the chair, awake and alert, minimally verbal and confused. She remains altered from her baseline. Lab workup so far is showing lactic acid 2.9. Glucose 275. K 5.4. No acidosis or hypercarbia. CXR clear. Troponin negative. TSH and ammonia normal. IVF infusing. Reevaluation #2: UA grossly positive for infection. Ordered for IV rocephin. She remains significantly altered from her baseline. She is protecting her airway. She is a full code. Will plan for admission. MDM - Altered Mental Status Lab Data Attestation: I reviewed the patient's lab results. Result diagrams: 07/01/22 11:39 07/01/22 11:39 Labs: Lab Results 07/01/22 07/01/22 07/01/22 Range/Units 11:01 11:38 11:39 WBC 7.3 (4.8-10.8) X10*3/uL RBC 3.68 L (4.20-5.50) X10*6/uL Hgb 10.9 L (12.0-16.0) g/dl Hct 33.7 L (37.0-47.0) % MCV 91.6 (80.0-98.0) fL MCH 29.6 (27.0-33.0) pg MCHC 32.3 (31.0-35.0) g/dl RDW 12.6 (11.0-16.0) % Plt Count 313 (160-400) X10*3/uL MPV 10.1 (9.4-12.3) fL Immature Gran % (Auto) 0.4 (0.0-0.4) % Neut % (Auto) 72.3 (45-73) % Lymph % (Auto) 19.1 L (20-40) % [place] % (Auto) 7.4 (2-11) % Eos % (Auto) 0.5 (0-4) % Baso % (Auto) 0.3 (0-2) % Lymph # (Auto) 1.4 (1.2-4.9) X10*3/uL [place] # (Auto) 0.5 (0.1-1.2) X10*3/uL Eos # (Auto) 0.0 (0.0-0.4) X10*3/uL Baso # (Auto) 0.0 (0.0-0.2) X10*3/uL Abs Immat Gran (auto) 0.03 (0.00-0.03) X10*3/uL Absolute Neuts (auto) 5.3 (2.0-8.3) x10*3/uL Absolute Nucleated RBC 0.000 (0.0-0.012) X10*3/uL Nucleated RBC % (auto) 0.0 (0.0-0.2) /100WBC PT (10.0-13.1) SEC INR (0.9-1.1) APTT (26.0-36.4) SEC VBG pH (7.32-7.43) VBG pCO2 mmHg VBG pO2 mmHg VBG HCO3 (22-26) mmol/L VBG O2 Saturation % VBG Base Excess mmol/L Sodium (135-145) mmol/L Potassium (3.3-5.1) mmol/L Chloride (96-108) mmol/L Carbon Dioxide (22-29) mmol/L Anion Gap (12-20) BUN (9-16) mg/dL Creatinine (0.5-1.4) mg/dL Estim Creat Clear Calc Estimated GFR POC Glucose 232 H (60-115) mg/dL Random Glucose (60-115) mg/dL Lactic Acid 2.9 H* (0.5-2.0) mmol/L Lactic Acid F/U @ 2Hr (0.5-2.0) mmol/L Calcium (8.4-10.2) mg/dL Magnesium (1.6-2.6) mg/dL Total Bilirubin (0.0-1.0) mg/dL Direct Bilirubin (0.0-0.5) mg/dL AST (5-31) U/L ALT (0-31) U/L Alkaline Phosphatase (39-117) U/L Ammonia (13-55) umol/L Troponin I High Sens (<3.5-17.0) ng/L B-Natriuretic Peptide (<100) pg/mL Total Protein (6.5-8.0) g/dL Albumin (3.5-5.0) g/dL Procalcitonin ng/mL TSH (0.32-4.0) uIU/mL Urine Color Urine Appearance Urine pH (5.0-9.0) Ur Specific [place] (1.005-1.025) Urine Protein (Neg-Trace) mg/dL Urine Glucose (UA) (Negative) mg/dL Urine Ketones (Negative) mg/dL Urine Blood (Negative) Urine Nitrite (Negative) Ur Leukocyte Esterase (Negative) Urine RBC (0-2) /HPF Urine WBC (0-5) /HPF Ur Squamous Epith Cells (0-2) /HPF Urine Bacteria (None Seen) Hyaline Casts (0-2) /LPF Urine Opiates Screen (Not Detect) Urine Fentanyl Screen (Not Detect) Ur Barbiturates Screen (Not Detect) Ur Phencyclidine Scrn (Not Detect) Ur Amphetamines Screen (Not Detect) U Benzodiazepines Scrn (Not Detect) Urine Cocaine Screen (Not Detect) U Marijuana (THC) Screen (Not Detect) COVID-19 (KIRTI) (Negative) COVID-19 Clin Com Influenza Type A (MARY) (Negative) Influenza Type B (MARY) (Negative) Influenza A & B Note 07/01/22 07/01/22 07/01/22 Range/Units 11:39 11:39 11:39 WBC (4.8-10.8) X10*3/uL RBC (4.20-5.50) X10*6/uL Hgb (12.0-16.0) g/dl Hct (37.0-47.0) % MCV (80.0-98.0) fL MCH (27.0-33.0) pg MCHC (31.0-35.0) g/dl RDW (11.0-16.0) % Plt Count (160-400) X10*3/uL MPV (9.4-12.3) fL Immature Gran % (Auto) (0.0-0.4) % Neut % (Auto) (45-73) % Lymph % (Auto) (20-40) % [place] % (Auto) (2-11) % Eos % (Auto) (0-4) % Baso % (Auto) (0-2) % Lymph # (Auto) (1.2-4.9) X10*3/uL [place] # (Auto) (0.1-1.2) X10*3/uL Eos # (Auto) (0.0-0.4) X10*3/uL Baso # (Auto) (0.0-0.2) X10*3/uL Abs Immat Gran (auto) (0.00-0.03) X10*3/uL Absolute Neuts (auto) (2.0-8.3) x10*3/uL Absolute Nucleated RBC (0.0-0.012) X10*3/uL Nucleated RBC % (auto) (0.0-0.2) /100WBC PT 11.9 (10.0-13.1) SEC INR 1.0 (0.9-1.1) APTT 29.5 (26.0-36.4) SEC VBG pH (7.32-7.43) VBG pCO2 mmHg VBG pO2 mmHg VBG HCO3 (22-26) mmol/L VBG O2 Saturation % VBG Base Excess mmol/L Sodium 139 (135-145) mmol/L Potassium 5.4 H (3.3-5.1) mmol/L Chloride 104 (96-108) mmol/L Carbon Dioxide 22 (22-29) mmol/L Anion Gap 18 (12-20) BUN 22 H (9-16) mg/dL Creatinine 0.79 (0.5-1.4) mg/dL Estim Creat Clear Calc 53.1 Estimated GFR > 60 POC Glucose (60-115) mg/dL Random Glucose 275 H (60-115) mg/dL Lactic Acid (0.5-2.0) mmol/L Lactic Acid F/U @ 2Hr (0.5-2.0) mmol/L Calcium 9.5 D (8.4-10.2) mg/dL Magnesium 1.6 (1.6-2.6) mg/dL Total Bilirubin 0.3 (0.0-1.0) mg/dL Direct Bilirubin 0.2 (0.0-0.5) mg/dL AST 26 D (5-31) U/L ALT 18 (0-31) U/L Alkaline Phosphatase 66 (39-117) U/L Ammonia (13-55) umol/L Troponin I High Sens < 3.5 (<3.5-17.0) ng/L B-Natriuretic Peptide 103 H (<100) pg/mL Total Protein 7.2 (6.5-8.0) g/dL Albumin 3.9 (3.5-5.0) g/dL Procalcitonin ng/mL TSH 3.19 (0.32-4.0) uIU/mL Urine Color Urine Appearance Urine pH (5.0-9.0) Ur Specific [place] (1.005-1.025) Urine Protein (Neg-Trace) mg/dL Urine Glucose (UA) (Negative) mg/dL Urine Ketones (Negative) mg/dL Urine Blood (Negative) Urine Nitrite (Negative) Ur Leukocyte Esterase (Negative) Urine RBC (0-2) /HPF Urine WBC (0-5) /HPF Ur Squamous Epith Cells (0-2) /HPF Urine Bacteria (None Seen) Hyaline Casts (0-2) /LPF Urine Opiates Screen (Not Detect) Urine Fentanyl Screen (Not Detect) Ur Barbiturates Screen (Not Detect) Ur Phencyclidine Scrn (Not Detect) Ur Amphetamines Screen (Not Detect) U Benzodiazepines Scrn (Not Detect) Urine Cocaine Screen (Not Detect) U Marijuana (THC) Screen (Not Detect) COVID-19 (KIRTI) (Negative) COVID-19 Clin Com Influenza Type A (MARY) (Negative) Influenza Type B (MARY) (Negative) Influenza A & B Note 07/01/22 07/01/22 07/01/22 Range/Units 11:39 11:39 11:39 WBC (4.8-10.8) X10*3/uL RBC (4.20-5.50) X10*6/uL Hgb (12.0-16.0) g/dl Hct (37.0-47.0) % MCV (80.0-98.0) fL MCH (27.0-33.0) pg MCHC (31.0-35.0) g/dl RDW (11.0-16.0) % Plt Count (160-400) X10*3/uL MPV (9.4-12.3) fL Immature Gran % (Auto) (0.0-0.4) % Neut % (Auto) (45-73) % Lymph % (Auto) (20-40) % [place] % (Auto) (2-11) % Eos % (Auto) (0-4) % Baso % (Auto) (0-2) % Lymph # (Auto) (1.2-4.9) X10*3/uL [place] # (Auto) (0.1-1.2) X10*3/uL Eos # (Auto) (0.0-0.4) X10*3/uL Baso # (Auto) (0.0-0.2) X10*3/uL Abs Immat Gran (auto) (0.00-0.03) X10*3/uL Absolute Neuts (auto) (2.0-8.3) x10*3/uL Absolute Nucleated RBC (0.0-0.012) X10*3/uL Nucleated RBC % (auto) (0.0-0.2) /100WBC PT (10.0-13.1) SEC INR (0.9-1.1) APTT (26.0-36.4) SEC VBG pH (7.32-7.43) VBG pCO2 mmHg VBG pO2 mmHg VBG HCO3 (22-26) mmol/L VBG O2 Saturation % VBG Base Excess mmol/L Sodium (135-145) mmol/L Potassium (3.3-5.1) mmol/L Chloride (96-108) mmol/L Carbon Dioxide (22-29) mmol/L Anion Gap (12-20) BUN (9-16) mg/dL Creatinine (0.5-1.4) mg/dL Estim Creat Clear Calc Estimated GFR POC Glucose (60-115) mg/dL Random Glucose (60-115) mg/dL Lactic Acid (0.5-2.0) mmol/L Lactic Acid F/U @ 2Hr (0.5-2.0) mmol/L Calcium (8.4-10.2) mg/dL Magnesium (1.6-2.6) mg/dL Total Bilirubin (0.0-1.0) mg/dL Direct Bilirubin (0.0-0.5) mg/dL AST (5-31) U/L ALT (0-31) U/L Alkaline Phosphatase (39-117) U/L Ammonia 19 (13-55) umol/L Troponin I High Sens (<3.5-17.0) ng/L B-Natriuretic Peptide (<100) pg/mL Total Protein (6.5-8.0) g/dL Albumin (3.5-5.0) g/dL Procalcitonin 0.02 ng/mL TSH (0.32-4.0) uIU/mL Urine Color Urine Appearance Urine pH (5.0-9.0) Ur Specific [place] (1.005-1.025) Urine Protein (Neg-Trace) mg/dL Urine Glucose (UA) (Negative) mg/dL Urine Ketones (Negative) mg/dL Urine Blood (Negative) Urine Nitrite (Negative) Ur Leukocyte Esterase (Negative) Urine RBC (0-2) /HPF Urine WBC (0-5) /HPF Ur Squamous Epith Cells (0-2) /HPF Urine Bacteria (None Seen) Hyaline Casts (0-2) /LPF Urine Opiates Screen (Not Detect) Urine Fentanyl Screen (Not Detect) Ur Barbiturates Screen (Not Detect) Ur Phencyclidine Scrn (Not Detect) Ur Amphetamines Screen (Not Detect) U Benzodiazepines Scrn (Not Detect) Urine Cocaine Screen (Not Detect) U Marijuana (THC) Screen (Not Detect) COVID-19 (KIRTI) Negative (Negative) COVID-19 Clin Com See Note Influenza Type A (MARY) (Negative) Influenza Type B (MARY) (Negative) Influenza A & B Note 07/01/22 07/01/22 07/01/22 Range/Units 11:39 11:40 11:51 WBC (4.8-10.8) X10*3/uL RBC (4.20-5.50) X10*6/uL Hgb (12.0-16.0) g/dl Hct (37.0-47.0) % MCV (80.0-98.0) fL MCH (27.0-33.0) pg MCHC (31.0-35.0) g/dl RDW (11.0-16.0) % Plt Count (160-400) X10*3/uL MPV (9.4-12.3) fL Immature Gran % (Auto) (0.0-0.4) % Neut % (Auto) (45-73) % Lymph % (Auto) (20-40) % [place] % (Auto) (2-11) % Eos % (Auto) (0-4) % Baso % (Auto) (0-2) % Lymph # (Auto) (1.2-4.9) X10*3/uL [place] # (Auto) (0.1-1.2) X10*3/uL Eos # (Auto) (0.0-0.4) X10*3/uL Baso # (Auto) (0.0-0.2) X10*3/uL Abs Immat Gran (auto) (0.00-0.03) X10*3/uL Absolute Neuts (auto) (2.0-8.3) x10*3/uL Absolute Nucleated RBC (0.0-0.012) X10*3/uL Nucleated RBC % (auto) (0.0-0.2) /100WBC PT (10.0-13.1) SEC INR (0.9-1.1) APTT (26.0-36.4) SEC VBG pH 7.40 (7.32-7.43) VBG pCO2 38 mmHg VBG pO2 35 mmHg VBG HCO3 24 (22-26) mmol/L VBG O2 Saturation 51.0 % VBG Base Excess -0.5 mmol/L Sodium (135-145) mmol/L Potassium (3.3-5.1) mmol/L Chloride (96-108) mmol/L Carbon Dioxide (22-29) mmol/L Anion Gap (12-20) BUN (9-16) mg/dL Creatinine (0.5-1.4) mg/dL Estim Creat Clear Calc Estimated GFR POC Glucose (60-115) mg/dL Random Glucose (60-115) mg/dL Lactic Acid (0.5-2.0) mmol/L Lactic Acid F/U @ 2Hr (0.5-2.0) mmol/L Calcium (8.4-10.2) mg/dL Magnesium (1.6-2.6) mg/dL Total Bilirubin (0.0-1.0) mg/dL Direct Bilirubin (0.0-0.5) mg/dL AST (5-31) U/L ALT (0-31) U/L Alkaline Phosphatase (39-117) U/L Ammonia (13-55) umol/L Troponin I High Sens (<3.5-17.0) ng/L B-Natriuretic Peptide (<100) pg/mL Total Protein (6.5-8.0) g/dL Albumin (3.5-5.0) g/dL Procalcitonin ng/mL TSH (0.32-4.0) uIU/mL Urine Color Yellow Urine Appearance Turbid Urine pH 6.5 (5.0-9.0) Ur Specific [place] 1.025 (1.005-1.025) Urine Protein 100 (2+) H (Neg-Trace) mg/dL Urine Glucose (UA) Negative (Negative) mg/dL Urine Ketones Trace (Negative) mg/dL Urine Blood Moderate (2+) H (Negative) Urine Nitrite Negative (Negative) Ur Leukocyte Esterase Large (3+) H (Negative) Urine RBC >20 H (0-2) /HPF Urine WBC >50 H (0-5) /HPF Ur Squamous Epith Cells >20 (0-2) /HPF Urine Bacteria 4+ (None Seen) Hyaline Casts 6-10 (0-2) /LPF Urine Opiates Screen (Not Detect) Urine Fentanyl Screen (Not Detect) Ur Barbiturates Screen (Not Detect) Ur Phencyclidine Scrn (Not Detect) Ur Amphetamines Screen (Not Detect) U Benzodiazepines Scrn (Not Detect) Urine Cocaine Screen (Not Detect) U Marijuana (THC) Screen (Not Detect) COVID-19 (KIRTI) (Negative) COVID-19 Clin Com Influenza Type A (MARY) Negative (Negative) Influenza Type B (MARY) Negative (Negative) Influenza A & B Note See Note 07/01/22 07/01/22 Range/Units 11:51 15:35 WBC (4.8-10.8) X10*3/uL RBC (4.20-5.50) X10*6/uL Hgb (12.0-16.0) g/dl Hct (37.0-47.0) % MCV (80.0-98.0) fL MCH (27.0-33.0) pg MCHC (31.0-35.0) g/dl RDW (11.0-16.0) % Plt Count (160-400) X10*3/uL MPV (9.4-12.3) fL Immature Gran % (Auto) (0.0-0.4) % Neut % (Auto) (45-73) % Lymph % (Auto) (20-40) % [place] % (Auto) (2-11) % Eos % (Auto) (0-4) % Baso % (Auto) (0-2) % Lymph # (Auto) (1.2-4.9) X10*3/uL [place] # (Auto) (0.1-1.2) X10*3/uL Eos # (Auto) (0.0-0.4) X10*3/uL Baso # (Auto) (0.0-0.2) X10*3/uL Abs Immat Gran (auto) (0.00-0.03) X10*3/uL Absolute Neuts (auto) (2.0-8.3) x10*3/uL Absolute Nucleated RBC (0.0-0.012) X10*3/uL Nucleated RBC % (auto) (0.0-0.2) /100WBC PT (10.0-13.1) SEC INR (0.9-1.1) APTT (26.0-36.4) SEC VBG pH (7.32-7.43) VBG pCO2 mmHg VBG pO2 mmHg VBG HCO3 (22-26) mmol/L VBG O2 Saturation % VBG Base Excess mmol/L Sodium (135-145) mmol/L Potassium (3.3-5.1) mmol/L Chloride (96-108) mmol/L Carbon Dioxide (22-29) mmol/L Anion Gap (12-20) BUN (9-16) mg/dL Creatinine (0.5-1.4) mg/dL Estim Creat Clear Calc Estimated GFR POC Glucose (60-115) mg/dL Random Glucose (60-115) mg/dL Lactic Acid (0.5-2.0) mmol/L Lactic Acid F/U @ 2Hr 1.5 (0.5-2.0) mmol/L Calcium (8.4-10.2) mg/dL Magnesium (1.6-2.6) mg/dL Total Bilirubin (0.0-1.0) mg/dL Direct Bilirubin (0.0-0.5) mg/dL AST (5-31) U/L ALT (0-31) U/L Alkaline Phosphatase (39-117) U/L Ammonia (13-55) umol/L Troponin I High Sens (<3.5-17.0) ng/L B-Natriuretic Peptide (<100) pg/mL Total Protein (6.5-8.0) g/dL Albumin (3.5-5.0) g/dL Procalcitonin ng/mL TSH (0.32-4.0) uIU/mL Urine Color Urine Appearance Urine pH (5.0-9.0) Ur Specific [place] (1.005-1.025) Urine Protein (Neg-Trace) mg/dL Urine Glucose (UA) (Negative) mg/dL Urine Ketones (Negative) mg/dL Urine Blood (Negative) Urine Nitrite (Negative) Ur Leukocyte Esterase (Negative) Urine RBC (0-2) /HPF Urine WBC (0-5) /HPF Ur Squamous Epith Cells (0-2) /HPF Urine Bacteria (None Seen) Hyaline Casts (0-2) /LPF Urine Opiates Screen Not Detected (Not Detect) Urine Fentanyl Screen Not Detected (Not Detect) Ur Barbiturates Screen Not Detected (Not Detect) Ur Phencyclidine Scrn Not Detected (Not Detect) Ur Amphetamines Screen Not Detected (Not Detect) U Benzodiazepines Scrn Not Detected (Not Detect) Urine Cocaine Screen Not Detected (Not Detect) U Marijuana (THC) Screen Not Detected (Not Detect) COVID-19 (KIRTI) (Negative) COVID-19 Clin Com Influenza Type A (MARY) (Negative) Influenza Type B (MARY) (Negative) Influenza A & B Note ECG Data ECG #1: Attestation: I personally reviewed and interpreted this ECG as follows: ECG interpretation date: 07/01/22 ECG interpretation time: 16:47 Prior ECG tracings: available for review Interpretation: normal sinus rhythm, low voltage QRS, HR 65, no ST segment elevations Critical Care Time Critical Care Time Critical Care Time: Yes Total Critical Care Time: 41 Attestation: I have personally provided critical care time exclusive of time spent on separately billable procedures. Time includes review of lab data, radiology results, discussion with consultants, and monitoring for potential decompensation. Intervention performed as documented. Discharge Plan Discharge Clinical Impression: Acute metabolic encephalopathy, Acute UTI Patient Disposition: Admitted As Inpatient
[2022-07-01 11:02] VITALS: BP 113/54; BP 132/56; PULSE 69; PULSE 73; RESP 24; TEMP 36.9; O2SAT 97; O2SAT 98; BMI 23.8
[2022-07-01 11:21] LABS: Glucose, Whole Blood 232 mg/dL (60-115)
[2022-07-01 11:45] LABS: MANUAL DIFF FLAG NO
[2022-07-01 11:45] LABS: Venous Blood Gas Refer to POC result
[2022-07-01 11:48] LABS: Basophils Percent Auto 0.3 % (0-2); Eosinophils Percent Auto 0.5 % (0-4); Hematocrit 33.7 % (37.0-47.0); Hemoglobin 10.9 g/dl (12.0-16.0); Imm Gran Abs Auto 0.03 X10*3/uL (0.00-0.03); Imm Gran Pct Auto 0.4 % (0.0-0.4); Lymphocytes Absolute Auto 1.4 X10*3/uL (1.2-4.9); Lymphocytes Percent Auto 19.1 % (20-40); Mean Corpuscular HGB Conc 32.3 g/dl (31.0-35.0); Mean Corpuscular Hemoglobin 29.6 pg (27.0-33.0); Mean Corpuscular Volume 91.6 fL (80.0-98.0); Mean Platelet Volume 10.1 fL (9.4-12.3); Monocytes Absolute Auto 0.5 X10*3/uL (0.1-1.2); Monocytes Percent Auto 7.4 % (2-11); Neutrophils Absolute Auto 5.3 x10*3/uL (2.0-8.3); Neutrophils Percent Auto 72.3 % (45-73); Platelet Count 313 X10*3/uL (160-400); Red Blood Count 3.68 X10*6/uL (4.20-5.50); Red Cell Distribution Width 12.6 % (11.0-16.0); White Blood Count 7.3 X10*3/uL (4.8-10.8)
[2022-07-01 11:52] LABS: Prothrombin Time 11.9 SEC (10.0-13.1)
[2022-07-01 11:55] LABS: Partial Thromboplastin Time 29.5 SEC (26.0-36.4)
[2022-07-01] MEDS: 0.9 % Sodium Chloride 1,000 ML 999 ML IVCONT (11:57)
[2022-07-01 11:59] LABS: Appearance Urine Turbid; Color Urine Yellow; Glucose Urine UA Negative (Negative); Leukocyte Esterase Urine Large (3+) (Negative); Nitrite Urine Negative (Negative); PH 6.5 (5.0-9.0); Specific Gravity - Urine 1.025 (1.005-1.025); UMIC TRIGGER UACC YES; Urine Blood Moderate (2+) (Negative); Urine Ketones Trace mg/dL (Negative); Urine Protein 100 (2+) mg/dL (Neg-Trace)
[2022-07-01 12:00] VITALS: BP 132/55; PULSE 66; RESP 16; O2SAT 97
[2022-07-01 12:02] LABS: Ammonia 19 umol/L (13-55)
[2022-07-01 12:04] LABS: Lactic Acid 2.9 mmol/L (0.5-2.0)
[2022-07-01 12:09] LABS: Alanine Aminotransferase 18 U/L (0-31); Albumin Level 3.9 g/dL (3.5-5.0); Alkaline Phosphatase 66 U/L (39-117); Anion Gap 18 (12-20); Aspartate Amino Transferase 26 U/L (5-31); Bilirubin Direct 0.2 mg/dL (0.0-0.5); Bilirubin Total 0.3 mg/dL (0.0-1.0); Blood Urea Nitrogen 22 mg/dL (9-16); COVID-19 Test Negative (Negative); Calcium 9.5 mg/dL (8.4-10.2); Carbon Dioxide 22 mmol/L (22-29); Chloride 104 mmol/L (96-108); Creatinine Clr Calc Pharmacy 53.1; Estimated Glomerular Filt Rate > 60; Glucose Random 275 mg/dL (60-115); IDNOW Serial# 16C4AD1C; IDNOW Serial# 9DB6401D; Influenza A Negative (Negative); Influenza B2 Negative (Negative); Magnesium 1.6 mg/dL (1.6-2.6); Potassium 5.4 mmol/L (3.3-5.1); Sodium 139 mmol/L (135-145); Total Protein 7.2 g/dL (6.5-8.0)
[2022-07-01 12:12] LABS: Bacteria Urine 4+ (None Seen); RBC Urine >20 /HPF (0-2); Squamous Epithelial Cell Urine >20 /HPF (0-2); UACC Culture Trigger YES; WBC Urine >50 /HPF (0-5)
[2022-07-01 12:12] LABS: B Type Natriuretic Peptide 103 pg/mL (<100); Troponin-I High Sensitivity < 3.5 ng/L (<3.5-17.0)
[2022-07-01 12:13] LABS: Amphetamine Screen Urine Not Detected (Not Detect); Barbiturates, Urine Not Detected (Not Detect); Benzodiazepines Screen Urine Not Detected (Not Detect); Cannabinoid Screen Urine Not Detected (Not Detect); Cocaine Screen Urine Not Detected (Not Detect); Fentanyl, urine Not Detected (Not Detect); Opiate Screen Urine Not Detected (Not Detect); Phencyclidine Screen Urine Not Detected (Not Detect)
[2022-07-01 12:27] LABS: TSH reflex Free T4 3.19 uIU/mL (0.32-4.0)
[2022-07-01 12:33] LABS: VBG Base Excess -0.5 mmol/L; VBG HCO3 24 mmol/L (22-26); VBG pCO2 38 mmHg; VBG pO2 35 mmHg
[2022-07-01 12:39] LABS: Procalcitonin 0.02 ng/mL
[2022-07-01] MEDS: cefTRIAXone sodium 1 GM in 0.9 % Sodium Chloride 50 ML IV (13:23)
[2022-07-01 13:26] VITALS: BP 138/66; PULSE 69; RESP 14; O2SAT 98
[2022-07-01 13:43] LABS: Reflex Lactate? Lactic Acid Added
--- NOTE | 2022-07-01 14:13 | PHA.MEDREC ---
Pharmacy Consult ? Medication Reconciliation Pharmacy has completed the medication reconciliation. Pt had med list from [facility]
[2022-07-01 15:52] LABS: ~Lactic Acid-LAB USE ONLY 1.5 mmol/L (0.5-2.0)
--- NOTE | 2022-07-01 17:02 | PM.IMHP ---
History of Present Illness Date of Service: 07/01/22 Chief Complaint: Altered mental status 67 year old female with from SNF with history of Alzheimer dementia, Diabetes type 2, Hypertension, CAD with NSTEMI (non-ST elevated myocardial infarction) in the past presenting with altered mental status. She reported in the morning was in her usual state and took her all her meds including BP meds and shortly thereafter she was less responsive and noted to by hypotensive and hypoxia. EMS reported BP of 90/50. WBC is normal, UA is grossly positive for UTI, BMP is ok other K of 5.4, lactic 2.9, sugar 200. Her blood pressure here has been at or above normal. She is somnolent but easily aroused now doesn't really say much, she moves all extremity, no facial features or stroke. Head CT no acute pathology. Ceftriaxone is given for UTI Review of Systems Review of Systems: confusion no fever Yes all other systems are reviewed and are negative [facility] Medical History Altered mental status Alzheimer disease Diabetes type 2, uncontrolled Hypertension Lactic acid acidosis Metabolic encephalopathy NSTEMI (non-ST elevated myocardial infarction) Social History Household Members: None Housing: Long-Term Advance Directives: No Advance Directives Information Provided: Yes service: No Current occupational status: disabled Meds Allergies Allergy/AdvReac Type Severity Reaction Status Date / Time No Known Allergies Allergy Verified 06/29/20 11:12 Active Medications: Current Medications Pharmacy Consult (Consult Rx Perform Med Rec) 1 each MISCELLANE ONCE PRN PRN Reason: Consult order Pharmacy Consult (Consult Rx Perform Med Rec) 1 each MISCELLANE ONCE PRN PRN Reason: Consult order Home Medications Medication Instructions Recorded Confirmed Last Taken Type acetaminophen 325 mg tablet 650 mg PO Q12H PRN Mild Pain 06/29/20 07/01/22 Unknown History (Scale Score 1-4) atorvastatin 80 mg tablet 80 mg PO BEDTIME 06/29/20 07/01/22 Unknown History bisacodyl 10 mg rectal suppository 10 mg [place] DAILY PRN Constipation 06/29/20 07/01/22 Unknown History clopidogrel 75 mg tablet 75 mg PO DAILY 06/29/20 07/01/22 Unknown History docusate sodium 100 mg capsule 100 mg PO BID 06/29/20 07/01/22 Unknown History insulin glargine 100 unit/mL 12 unit subcut DAILY 06/29/20 07/01/22 Unknown History subcutaneous solution (Lantus U-100 Insulin) isosorbide mononitrate 30 mg 30 mg PO DAILY 06/29/20 07/01/22 Unknown History tablet,extended release 24 hr magnesium hydroxide 400 mg/5 mL 30 ml PO DAILY PRN Constipation 06/29/20 07/01/22 Unknown History oral suspension (Milk of Magnesia) metformin 1,000 mg tablet 1,000 mg PO BID 06/29/20 07/01/22 Unknown History metoprolol tartrate 25 mg tablet 25 mg PO BID 06/29/20 07/01/22 Unknown History polyethylene glycol 3350 17 gram 17 g PO DAILY 06/29/20 07/01/22 Unknown History oral powder packet (Miralax) aspirin 81 mg tablet,delayed 81 mg PO DAILY 07/01/22 07/01/22 Unknown History release lidocaine 4 % topical patch 1 patch topical DAILY 07/01/22 07/01/22 Unknown History magnesium 200 mg tablet 400 mg PO DAILY@0700,1400,2000 07/01/22 07/01/22 Unknown History Physical Exam Vital Signs and Narrative: Vital Signs: Last Vital Signs Temp 98.5 F 07/01/22 11:02 Pulse 69 07/01/22 13:26 Resp 14 07/01/22 13:26 BP 138/66 07/01/22 13:26 Pulse Ox 98 07/01/22 13:26 O2 Del Method 07/01/22 13:26 BMI result Body Mass Index 23.8 Const: Other: Constitutional: Alert but confused, thin built Mental Status: Unable to assess Eyes: Pupils are equal, round and reactive to light. Ear, Nose and Throat: Oropharynx clear, mucous membranes moist. Respiratory: Clear to auscultation. No wheezing, rales or rhonchi. Cardiovascular: S1 S2 regular. No murmurs, rubs or gallops. Gastrointestinal: Abdomen soft, non-tender, non-distended. Normal bowel sounds.? Neurologic: Cranial nerves II-XII not able to assess. No focal neurological deficits. Moves all extremities spontaneously, she grabed me by hands with strong grasped on both sides Skin: No rashes or lesions.? Musculoskeletal: No cyanosis or clubbing. Psychiatric: Normal mood and affect? Results Labs CBC and Chem 7: 07/01/22 11:39 07/01/22 11:39 Imaging Radiologist's Impressions: Impressions Chest X-Ray 07/01/22 11:28 IMPRESSION: No acute cardiopulmonary process. Head CT 07/01/22 14:57 IMPRESSION: 1. No acute intracranial pathology. Assessment and Plan (1) Acute metabolic encephalopathy: Status: Acute (2) Acute UTI: Status: Acute (3) Toxic encephalopathy: Status: Acute Plan 67/F with [place] dementi, diabetes, hTN, h/o CAD recurent uti with metablic encephalopathy presenting AMS, hypotension that has now resolved and foud to have UTI and toxic metabolic encephalopathy as source of confusion #Toxic metabolic encephalopath--d/t UTI doesn't meet sepsis criteria -Treat underlying UTI -Hydration #UTI--cultures sent, started Ceftriaxone in ED and will continue and follow culture #lactic acidosis--likey related to Hypotension earlier, IVF and repeat #HypErKalemia of 5.4, monitor and repeat tomorrow #HypOtension--lowest SBP here is 90, Hypotenison not due to sepsis #Diabetes--hold Metformin, -SSI, chec sugar per SS protocol #HTN--BP is not low here and in fact presently hypertensive. Hold metoprolol, imdur for now and resume by morning if BP still high #CAD--no angina, continue lipitor, ASA, Plavix, metoprolo #HLD--Lipitor DVT: heparin Code: Admission to span at least 2 midnights for mangement toxicic metabolic encephalopathy due to UTI and need for IV antibiotics to halt progression to sepsis and mortality Quality Stroke Does the patient have a stroke diagnosis?: No VTE Prior VTE?: No VTE Risk Level:: Medical - moderate - high VTE Device Contraindication: Treatment Not Indicated VTE Drug Contraindication: N/A - Med Ordered
[2022-07-01 17:15] VITALS: BP 177/57; PULSE 63; RESP 16; O2SAT 100
--- NOTE | 2022-07-01 17:16 | PC.NURSE ---
Pt more responsive at this time. Opening eyes and responding to painful stimuli. Pt had multiple bouts of incontinence, cleaned and repositioned each time.
--- OUTSIDE RECORDS SUMMARY | 2022-07-01 17:53 | XMS_ITS | Continuity of Care Document ---
:1955 Author Organization [facility] Address [address] [place] [id number]- Care Team Providers Name Role Phone Kristal RUANO, Lila Primary Care [id number] Date(s): 02/16/20 - 02/26/[address] [address]- [facility] Encounter Diagnosis UTI symptoms (Final) - 02/16/20 Discharge Disposition: A-D/C Home Attending Physician: Galina RUANO, Dung Rowe Admitting Physician: Pelon Hillman MD Referring Physician: Not on Staff, Referring MD Allergies, Adverse Reactions, Alerts Substance Reaction Severity Status NKA Active Immunizations Not Given Vaccine Date Status Refusal Reason pneumococcal 13-valent vaccine 02/18/20 Not Given P atient Refuses Medications aspirin 81 mg oral delayed release tablet 81 mg, 1, tablet, By Mouth, Daily, # 30 tablet, Refills 11, Tot. Refills 11, Maintenance, 10/15/18 12:14:02 EST, Route to Pharmacy Electronically, [id number], [facility] Start Date: 10/15/18 Stop Date: 10/10/19 Status: Orderedatorvastatin 80 mg oral tablet 1 tablet = 80 mg, By Mouth, Daily, # 30 tablet, 3 Refills, Maintenance, Tablet, Route to Pharmacy Electronically, [id number], [facility] Start Date: 10/15/18 Stop Date: 02/12/19 Status: Orderedclopidogrel 75 mg oral tablet 75 mg, 1, tablet, By Mouth, Daily, # 30 tablet, Refills 0, Maintenance, 02/18/20 16:34:00 EDT Start Date: 02/18/20 Status: OrderedDocusate By Mouth, 2 times a day, 0 Refills, Maintenance, 02/26/20 9:55:00 EDT, Capsule Start Date: 02/26/20 Status: OrderedInsulin Lispro 2-10 units, Subcutaneous Injection, 3 times a day before meals, << Sliding Scale Comments >> 150 - 199 2 units Call if less than 100 200 - 249 4 units 250 - 299 6 units 300 - 349 8 units 350 - 399 10 units Call if greater than 400 <... Start Date: 02/26/20 Status: Orderedisosorbide mononitrate 30 mg oral tablet, extended release 30 mg, 1, tablet, By Mouth, Daily in AM, # 30 tablet, Refills 3, Tot. Refills 3, Maintenance, 10/15/18 12:15:03 EST, Route to Pharmacy Electronically, [id number], [facility] Start Date: 10/15/18 Stop Date: 02/12/19 Status: OrderedLantus 100 u/ml subcutaneous solution = 12 units, Subcutaneous Infusion, Daily at bedtime, 0 Refills, Maintenance, 10/12/18 16:24:46 EST Start Date: 10/12/18 Status: Orderedmemantine 5 mg oral tablet 1 tablet = 5 mg, By Mouth, Daily, # 30 tablet, 0 Refills, Maintenance, 02/18/20 16:34:00 EDT, Tablet Start Date: 02/18/20 Status: OrderedmetFORMIN 1000 mg oral tablet 1 tablet = 1,000 mg, By Mouth, 2 times a day, # 60 tablet, 0 Refills, Maintenance, 10/12/18 16:26:47EST, Tablet Start Date: 10/12/18 Status: Orderedmetoprolol 25 mg oral tablet 25 mg, By Mouth, 2 times a day, # 60 tablet, Refills 3, Tot. Refills 3, Maintenance, 10/15/18 12:19:42 EST, Route to Pharmacy Electronically, [id number], [facility], Please dispense 25mg BID; cancel the other pr... Start Date: 10/15/18 Stop Date: 02/12/19 Status: OrderedMiraLax Powder 1 pack/packet = 17 Gm, By Mouth, Daily, 0 Refills, Maintenance, 02/26/20 9:56:00 EDT, Powder Start Date: 02/26/20 Status: OrderedTylenol 325 mg oral tablet 650 mg, 2, tablet, By Mouth, Every 4 hours, PRN, Refills 0, Maintenance, Pain , Mild, 02/26/20 9:55:00 EDT Start Date: 02/26/20 Status: Ordered Problem List Condition Effective Dates Status Health Status Informant Altered mental status(Confirmed) Active Asthma(Confirmed) Active Carpal tunnel syndrome(Confirmed) Active Depressed(Confirmed) Active Dyslipidemia(Confirmed) Active Hypertension(Confirmed) Active Osteoarthritis(Confirmed) Active Type 2 diabetes mellitus(Confirmed) Active Results Orders for Microbiology Reports Name Date Blood Culture 02/16/20 Blood Culture #2 02/16/20 Microbiology Reports TEST:Blood Culture, Second Order STATUS:Auth (Verified) BODY SITE: SOURCE:Blood COLLECTED DATE/TIME:02/16/20 4:50 PMBlood Culture, Second Order SPECIMEN DESCRIPTION : BLOOD L HAND SPECIAL REQUESTS : NONE CULTURE : NO GROWTH 5 DAYS. REPORT STATUS : FINAL 02/21/2020TEST:Blood Culture STATUS:Auth (Verified) BODY SITE: SOURCE:Blood COLLECTED DATE/TIME:02/16/20 4:30 PMBlood Culture SPECIMEN DESCRIPTION : BLOOD R FOREARM SPECIAL REQUESTS : NONE CULTURE : NO GROWTH 5 DAYS. REPORT STATUS : FINAL 02/21/2020Radiology Reports Exam Date Time Procedure Performing Provider Status 02/21/20 2:58 PM Abdomen AP Ama Garcia; Auth ([facility] ed) Notes:(Abdomen AP) Reason For Exam: ConstipationRESULT: XR Abdomen AP XR Abdomen AP Reason: Constipation; Clinical Question(s): Constipation; Hx of Present Illness: Unresponsive COMPARISON: None. FINDINGS: Moderate amount of retained fecal material seen throughout the colon intermixed with air. There is no evidence of bowel obstruction or pneumoperitoneum. Stool and air extending to the level of the rectosigmoid colon. No radiographic evidence of organomegaly. No acute bony abnormalities. IMPRESSION: No acute abnormality. Moderate stool retention. WSN: [id number] Ordering Physician: Elizabeth Villasenor Dictated By: Ama Wood MD Dictated Date/Time: 02/21/20 3:27 pm Reviewed By: Ama Wood MD Signed By: Ama Wood MD Signed Date/Time: 02/21/20 3:27 pm Transcribed By: KELTON Transcribed Date/Time: 02/21/20 3:26 pm Exam Date Time Procedure Performing Provider Status 02/19/20 6:30 AM Wrist Comp Min 3 Views Left Beverly Espinoza; Nba (Verified) Notes:(Wrist Comp Min 3 Views Left) Reason For Exam: PainRESULT: Wrist Comp Min 3 Views Left Wrist 3 Views Left Reason: Pain with question of fracture. Patient unresponsive. COMPARISON: Left forearm 02/17/2020 FINDINGS: No fracture or dislocation. Intact radial and ulnar styloid processes. Mild widening of the scapholunate interval. Mild degenerative changes of the first carpometacarpal and triscaphe joints. Normal soft tissues. IMPRESSION: 1. No fracture or dislocation. 2. Mild degenerative changes of the first carpometacarpal and triscaphe joints. 3. Mild widening of the scapholunate interval. This may represent scapholunate ligamentous injury. I have personally reviewed the images and I agree with this report. WSN: [id number] Ordering Physician: Janiya Henriquez Dictated By: Rj House DO Dictated Date/Time: 02/19/20 12:41 p Reviewed By: Rony West MD Signed By: Rony West MD Signed Date/Time: 02/19/20 12:46 pm Transcribed By: CSB Transcribed Date/Time: 02/19/20 12:26 pm Exam Date Time Procedure Performing Provider Status 02/17/20 3:50 PM XR Hip w/Pelvis 2-3 View Right Ama Maria; Auth (Verified) Notes:(XR Hip w/Pelvis 2-3 View Right) Reason For Exam: PainRESULT: XR Hip w/Pelvis 2-3 View Right XR Hip w/Pelvis 2-3 View Right INDICATION: Pain. CLINICAL QUESTION: Fracture. HPI: Unresponsive. COMPARISON: None. FINDINGS: There is no fracture. The sacroiliac joints are normal. Normal hip joints without arthritic change. A large rectal stool ball is present, distending the rectum up to 9 cm. Bilateral vascular calcifications. IMPRESSION: 1. No fracture. 2. Distended rectum with a large stool ball. Please correlate clinically to exclude impaction. I have personally reviewed the images and I agree with this report. WSN: [id number] Ordering Physician: Elizabeth Villasenor Dictated By: Davey Acosta MD Dictated Date/Time: 02/17/20 4:01 pm Reviewed By: Marshall Weaver MD Signed By: Marshall Weaver MD Signed Date/Time: 02/17/20 4:06 pm Transcribed By: KELTON Transcribed Date/Time: 02/17/20 3:57 pm Exam Date Time Procedure Performing Provider Status 02/17/20 1:15 AM Elbow Min 3 Views Left Grodzicka , Tonya; Auth ( Verified) Notes:(Elbow Min 3 Views Left) Reason For Exam: PainRESULT: Elbow Min 3 Views Left Forearm 2 Views Left, Elbow Min 3 Views Left Reason: Pain; Clinical Question(s): Fracture; Hx of Present Illness: Unresponsive COMPARISON: None. FINDINGS: No fractures or bone lesions. There is degenerative change of the left elbow with bony proliferationalong the medial jointline as well as along the radial neck. Mild bony proliferation is also noted along the lateral aspect of the radial head articular surface. No evidence of elbow joint effusion or focal soft tissue swelling. Extensive vascular calcificationsseen. No radiopaque foreign body. IMPRESSION: No acute displaced fracture of the left forearm or elbow. I have personally reviewed the images and I agree with this report. WSN: [id number] Ordering Physician: Matheus Martin Dictated By: Tammy Pérez MD Dictated Date/Time: 02/17/20 7:38 am Reviewed By: Nury Neal MD Signed By: Nury Neal MD Signed Date/Time: 02/17/20 7:43 am Transcribed By: KELTON Transcribed Date/Time: 02/17/20 6:33 am Exam Date Time Procedure Performing Provider Status 02/17/20 1:15 AM Forearm 2 Views Left Grodzicka , Tonya; Auth (Ve rified) Notes:(Forearm 2 Views Left) Reason For Exam: PainRESULT: Forearm 2 Views Left Forearm 2 Views Left, Elbow Min 3 Views Left Reason: Pain; Clinical Question(s): Fracture; Hx of Present Illness: Unresponsive COMPARISON: None. FINDINGS: No fractures or bone lesions. There is degenerative change of the left elbow with bony proliferationalong the medial jointline as well as along the radial neck. Mild bony proliferation is also noted along the lateral aspect of the radial head articular surface. No evidence of elbow joint effusion or focal soft tissue swelling. Extensive vascular calcificationsseen. No radiopaque foreign body. IMPRESSION: No acute displaced fracture of the left forearm or elbow. I have personally reviewed the images and I agree with this report. WSN: [id number] Ordering Physician: Matheus Martin Dictated By: Tammy Pérez MD Dictated Date/Time: 02/17/20 7:38 am Reviewed By: Nury Neal MD Signed By: Nury Neal MD Signed Date/Time: 02/17/20 7:43 am Transcribed By: KELTON Transcribed Date/Time: 02/17/20 6:33 am Exam Date Time Procedure Performing Provider Status 02/17/20 1:15 AM Shoulder Min 2 Views Left Gonzálezdjaninea , Tonya; Aut h (Verified) Notes:(Shoulder Min 2 Views Left) Reason For Exam: PainRESULT: Shoulder Min 2 Views Left Shoulder Min 2 Views Left, 2 views Reason: Pain; Clinical Question(s): Fracture; Hx of Present Illness: Unresponsive COMPARISON: None. FINDINGS: No fracture or dislocation. No arthritic change of the glenohumeral joint. Normal AC joint and portions of the clavicle included on the exam. No calcification of the rotator cuff. Visualized portions of the lung are unremarkable. IMPRESSION: No acute displaced fracture or dislocation. . I have personally reviewed the images and I agree with this report. WSN: [id number] Ordering Physician: Matheus Martin Dictated By: Tammy Pérez MD Dictated Date/Time: 02/17/20 7:35 am Reviewed By: Nury Neal MD Signed By: Nury Neal MD Signed Date/Time: 02/17/20 7:40 am Transcribed By: KELTON Transcribed Date/Time: 02/17/20 6:29 am Exam Date Time Procedure Performing Provider Status 02/16/20 5:20 PM Chest Portable Jaret , Zayra; Auth (Verified ) Notes:(Chest Portable) Reason For Exam: AnginaRESULT: Chest Portable Chest Portable Reason: Angina; Clinical Question(s): Pneumonia; Hx of Present Illness: Unresponsive COMPARISON: None. FINDINGS: LINES AND TUBES: None. LUNGS AND PLEURA: Lung volumes are low. Patchy retrocardiac opacity. Bronchovascular crowding. No pleural effusion. No pneumothorax. HEART, MEDIASTINUM AND JOSE: Heart is normal in size. Normal mediastinal and hilar contour. BONES AND SOFT TISSUES: No acute abnormality. IMPRESSION: Low lung volumes with patchy retrocardiac opacity which may reflect atelectasis, aspiration, or infiltrate. WSN: [id number] Ordering Physician: Jimenez Reese Dictated By: Patrick Jaime MD Dictated Date/Time: 02/16/20 5:24 pm Reviewed By: Patrick Jaime MD Signed By: Patrick Jaime MD Signed Date/Time: 02/16/20 5:24 pm Transcribed By: KELTON Transcribed Date/Time: 02/16/20 5:23 pm Vital Signs Most recent to oldest 1 2 3 [Reference Range]: Height 163 cm 163 cm 163 cm (02/26/20 8:18 AM) (02/25/20 3:35 PM) (02/25/20 9:0 1 AM) Weight 63.4 kg 64.7 kg (02/22/20 3:45 PM) (02/17/20 1:40 AM) Oxygen Saturation [94-100 %] 100 % 99 % 100 % (02/26/20 8:18 AM) (02/26/20 3:00 AM) (02/25/20 11: 00 PM) Pulse Rate [55-90 bpm] 77 bpm 73 bpm 79 bpm (02/26/20 8:53 AM) (02/26/20 8:18 AM) (02/26/20 3:0 0 AM) Body Mass Index [18.5-24.99] 24.35 (02/17/20 1:40 AM) Blood Pressure [90-138/55-84 103/70 mm Hg 92/73 mm Hg 113 /70 mm Hg mm Hg] (02/26/20 8:53 AM) (02/26/20 8:18 AM) (02/26/20 3:0 0 AM) Respiratory Rate [16-30 18 br/min 21 br/min 21 br/mi n br/min] (02/26/20 8:18 AM) (02/26/20 3:00 AM) (02/25/20 11: 00 PM) Temperature [96.8-100.4 DegF] 97.4 DegF 97.8 DegF 98 DegF (02/26/20 8:18 AM) (02/26/20 3:00 AM) (02/25/20 11: 00 PM) Liters per Minute 2 L/min (02/21/20 8:09 AM) Mode of Delivery (Oxygen) Room air Room air Room a ir (02/26/20 8:18 AM) (02/26/20 3:00 AM) (02/25/20 11: 00 PM) Blood pressure sites Arm, right Arm, right Arm, right (02/26/20 8:18 AM) (02/26/20 3:00 AM) (02/25/20 11: 00 PM) Temperature Route Axillary Oral Oral (02/26/20 8:18 AM) (02/26/20 3:00 AM) (02/25/20 11: 00 PM) Dry Weight 64.7 kg (02/17/20 1:40 AM) Weight Obtained Via Bed scale (02/22/20 3:45 PM) Social History Social History Type Response Smoking Status Former smoker, quit more wilfredo n 30 days ago entered on: 10/12/18 Sex
--- OUTSIDE RECORDS SUMMARY | 2022-07-01 17:53 | XMS_ITS ---
:1955 Author Care Team Providers Name Role Phone DAY [place] ([place]ND [place]) OTHER [phone] Allergies Code Code System Name Reaction Severity Status Onset NKDA ? Medications Notes: medications have been reviewed- see mar for up to date list Problems Name Status Onset Date Source ? Diabetes Mellitus Active 02/26/2020 ? Depressive Disorder Active 02/26/2020 ? Essential Hypertension Active 02/26/2020 ? Coronary Arteriosclerosis Active 02/26/2020 ? Osteoarthritis Active 02/26/2020 ? Dementia Active 02/26/2020 ? Asthenia Active 12/26/2021 ? Procedures None recorded. Results Lab Results None recorded. Past Encounters 06/25/2022 Dementia; Diabetes Mellitus; Essential H ypertension; Coronary Arteriosclerosis; Osteoarthritis Justine Cortez DATA ANALYSIS MANAGER: [address] [place] [address], Ph. 05/03/2022 Dementia; Diabetes Mellitus; Essential H ypertension; Coronary Arteriosclerosis; Osteoarthritis Heide Angeles MD: [address] [place] [address], Ph. 05/02/2022 Agitation Due to Dementia Justine Cortez DATA ANALYSIS MANAGER: [address] [place] [address], Ph. 03/14/2022 Diabetes Mellitus; Dementia; Coronary Ar teriosclerosis; Essential Hypertension Justine Cortez DATA ANALYSIS MANAGER: [address] [place] [address], Ph. 02/19/2022 Diabetes Mellitus; Dementia; Coronary Ar teriosclerosis; Essential Hypertension ALIREZA SanfordP: [address] [place] [address], Ph. 01/02/2022 Dementia; Coronary Arteriosclerosis; Mellissa betes Mellitus; Essential Hypertension; Osteoarthritis; Hyperlipidemia Heide Angeles MD: [address] [place] [address], Ph. 12/26/2021 Dementia; Osteoarthritis; Asthenia Sommer A Angel, DATA ANALYSIS MANAGER: [address] [place], [place] [address], Ph. 12/21/2021 Dementia; Coronary Arteriosclerosis; Mellissa betes Mellitus; Essential Hypertension; Osteoarthritis ALIREZA WildP: [address] [place] [address], Ph. 10/31/2021 Dementia; Coronary Arteriosclerosis; Dep ressive Disorder; Diabetes Mellitus; Essential Hypertension; Osteoarthritis Sommer A Angel, DATA ANALYSIS MANAGER: [address] [place], [place] [address], Ph. 09/07/2021 Coronary Arteriosclerosis Heide Angeles MD: [address] [place] [address], Ph. 07/13/2021 Dementia; Coronary Arteriosclerosis; Dep ressive Disorder; Diabetes Mellitus; Essential Hypertension; Osteoarthritis Sommer A Angel, DATA ANALYSIS MANAGER: [address] [place] [address], Ph. 05/22/2021 Coronary Arteriosclerosis; Dementia; Mellissa betes Mellitus; Essential Hypertension; Osteoarthritis Heide Angeles MD: [address] [place] [address], Ph. 05/11/2021 Diabetes Mellitus; Dementia; Essential H ypertension Clarisa Cerda MD: [address] [place] [address], Ph. 03/27/2021 Dementia; Diabetes Mellitus; Essential H ypertension ORIN Allen: [address] [place] [address], Ph. 03/06/2021 Dementia; Diabetes Mellitus; Essential H ypertension; Osteoarthritis; Depressive Disorder; Coronary Arteriosclerosis ORIN Allen: [address] [place] [address], Ph. 02/02/2021 Coronary Arteriosclerosis; Dementia; Mellissa betes Mellitus; Essential Hypertension; Osteoarthritis Heide Angeles MD: [address] [place] [place] [address], Ph. Social History Tobacco Smoking Status Unknown If Ever Smoked Vaccine List Vaccine Type COVID-19, mRNA, LNP-S, PF, 30 mcg/0.3 mL dose ([employer]) 10/08/2020 10/29/2020 influenza, injectable, quadrivalent 06/28/2020 pneumococcal conjugate PCV 13 08/09/2020 Plan of Care Reminders Provider Appointments None recorded. ? ? Lab None recorded. ? ? Referral None recorded. ? ? Procedures None recorded. ? ? Surgeries None recorded. ? ? Imaging None recorded. ? ? Vitals 06/25/2022 11:58AM Routine Rounding Visit Blood Pressure 05/03/2022 06:52AM Routine Rounding Visit Blood Pressure 05/02/2022 03:55PM Acute Rounding Visit Blood Pressure 03/14/2022 12:15PM Annual Exam Blood Pressure 02/19/2022 10:19AM Routine Rounding Visit Blood Pressure 01/02/2022 08:17AM Routine Rounding Visit Blood Pressure 122/66 mm[Hg] 12/21/2021 09:17AM Annual Exam Blood Pressure 122/66 mm[Hg] 10/31/2021 08:42AM Routine Rounding Visit Weight 119.7 lbs 09/07/2021 01:18PM Routine Rounding Visit Blood Pressure 104/56 mm[Hg] 05/22/2021 07:47AM Telemed Routine Rounding Blood Pressure 104/56 mm[Hg] 05/11/2021 07:39AM Acute Rounding Visit Weight Blood Pressure 123.4 lbs 104/56 mm[Hg] 03/27/2021 02:51PM Routine Rounding Visit Weight 122.6 lbs 03/06/2021 01:48PM Annual Exam Weight 120.9 lbs 02/02/2021 06:55AM Telemed Routine Rounding Blood Pressure 112/66 mm[Hg] 12/11/2020 01:21PM Routine Rounding Visit Weight 124.4 lbs 08/23/2020 03:01PM Routine Rounding Visit Weight 121.3 lbs 07/01/2020 10:12AM Readmission Blood Pressure 112/66 mm[Hg] 06/30/2020 08:13AM Telemed Routine Rounding Blood Pressure 141/81 mm[Hg] 04/12/2020 08:33AM Telemed Routine Rounding Blood Pressure 115/84 mm[Hg] 03/20/2020 02:57PM Routine Rounding Visit Weight Blood Pressure 119.5 lbs 112/50 mm[Hg] 03/06/2020 01:36PM Acute Rounding Visit Weight Blood Pressure 128.6 lbs 118/67 mm[Hg] 02/28/2020 01:20PM Admitting H&P Blood Pressure 126/65 mm[Hg] 02/26/2020 12:30PM Initial Intake Note Blood Pressure 103/70 mm[Hg]
--- OUTSIDE RECORDS SUMMARY | 2022-07-01 17:53 | XMS_ITS | Encounter Summary ---
:1955 Author Care Team Providers Name Role Phone Day [place] (2nd Fl) OTHER [phone] Reason for Visit Routine Rounding routine rounding visit Assessment and Plan 1. Dementia expect decline memantine 5 mg at hs will monitor and support as needed 2. Diabetes mellitus Humalog per sliding scale metformin 1000 mg bid Lantus 12U at hs will monitor 3. Essential hypertension metoprolol 25 mg bid isosorbide ER 30 mg daily will monitor 4. Coronary arteriosclerosis clopidogrel 75 mg daily atorvastatin 80 mg daily metoprolol 25 mg bid isosorbide ER 30 mg daily ASA 81 mg daily will monitor 5. Osteoarthritis APAP 650 mg q12h and q6h prn will monitor Discussion Note: None recorded.Patient educational handouts: No information available. Plan of Care Reminders Provider Appointments None recorded. ? ? Lab None recorded. ? ? Referral None recorded. ? ? Procedures None recorded. ? ? Surgeries None recorded. ? ? Imaging None recorded. ? ? Medications Notes: medications have been reviewed- see mar for up to date list Medications Administered None recorded. Vitals None recorded. Results Lab Results None recorded. Allergies Code Code System Name Reaction Severity Onset NKDA ? ? ? Problems Name Status Onset Date Source ? Diabetes Mellitus Active 02/26/2020 ? Depressive Disorder Active 02/26/2020 ? Essential Hypertension Active 02/26/2020 ? Coronary Arteriosclerosis Active 02/26/2020 ? Osteoarthritis Active 02/26/2020 ? Dementia Active 02/26/2020 ? Asthenia Active 12/26/2021 ? Procedures None recorded. Vaccine List Vaccine Type COVID-19, mRNA, LNP-S, PF, 30 mcg/0.3 mL dose ([employer]) 10/08/2020 10/29/2020 influenza, injectable, quadrivalent 06/28/2020 pneumococcal conjugate PCV 13 08/09/2020 Social History Tobacco Smoking Status Unknown If Ever Smoked What is your level of alcohol None consumption? Has tobacco cessation N Notes: N/A as pt . doesn't counseling been provided? smoke Do you or have you ever used Never used smokeless tobacco smokeless tobacco? On what date was tobacco Notes: N/A as pt. doesn't cessation counseling smoke provided? What is your code status? Full Code How much tobacco do you chew? none Do you have a medical power Y Notes: HCP invoked of screed person? What was the date of your 02/26/2020 most recent tobacco screening? Legal Guardian? N Do you have an advanced Y Notes: FULL [place] DE-use directive? dialysis, nutrition and hydration Do you or have you ever used Never used electronic e-cigarettes or vape? cigarettes Do you or have you ever used N any other forms of tobacco or nicotine? Functional Status Unknown. Past Encounters 05/03/2022 Dementia; Diabetes Mellitus; Essential H ypertension; Coronary Arteriosclerosis; Osteoarthritis Heide Angeles MD: [address] [place] [address], Ph. 05/02/2022 Agitation Due to Dementia Justine Cortez NP: [address] [place] [address], Ph. 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
</div><div>Medical history is remarkable for early onset Alzheimer's disease, DM, hypertension, depression, asthma, OA, hx CVA</div><div>
</div><div>Patient has been noted by nursing staff to be biting fingers and hands. REGISTERED NURSE SUPERVISOR evaluated yesterday and requested dental and psych consultations. It was also suggested to give patient something else to chew on. Nursing reported that patient was given a popsicle yesterday which was effective.</div><div>
</div><div>Today patient is sitting incommon area waiting to be fed lunch in [facility]. She makes good eye contact with me, but does not speak.</div><div>She is not biting anything during visit.</div><div>
</di v><div>MOLST: full code - signed 02/26/20; HCP invoked 02/26/20</div>Review of Systems: ROS as noted in the HPI Review of Systems ? Notes: <div>All others reviewed and negative unless otherwise stated in the HPI.</div> Physical Exam ? General Adult Exam Reported By: Patient Constitutional: General Appearance: healthy- appearing. Level of Distress: NAD. Ambulation: in wheelchair; i n broda chair at time of visit Psychiatric: Insight: poor insight. Menta l Status: normal mood, normal affect, confused. Orientation: to pe rson, not oriented to time, not oriented to place. Memory: r ecent memory abnormal, remote memory abnormal Head: Head: normocephalic, atrauma tic Eyes: Lids and Conjunctivae: non-i njected. Sclerae: non-icteric ENMT: Hearing: no hearing loss Neck: Neck: supple Lungs: Auscultation: breath sounds normal, good air movement, no wheezing, no rales/crackles, no rhonch i Cardiovascular: Heart Auscultation: RRR Abdomen: Bowel Sounds: normal, soft, no guarding, non-distended Musculoskeletal:: Extremities: no cyanosis, no edema. Joints, Bones, and Muscles (normal) normal movement of all extremities Neurologic: Cranial Nerves: grossly inta ct Skin: Inspection and palpation: no rash, no ulcer Notes: <div>04/17/22: WBC 5.7, H/H 1 1.8/38.1, plt 246, sodium 142, potassium 4.4, cr 0.74, BUN 27, glucose 92, a1c 6.8</div>
--- OUTSIDE RECORDS SUMMARY | 2022-07-01 17:53 | XMS_ITS | Encounter Summary ---
:1955 Author Care Team Providers Name Role Phone Day [place] (2nd Fl) OTHER [phone] Reason for Visit Routine Rounding Assessment and Plan 1. Dementia Not on meds at this time Monitor mood, behaviors Psych eval prn HCP invoked Expect continued decline 2. Diabetes mellitus No changes Continue: metformin 1000 mg bid Lantus 12U at hs BS bid twice a week and prn A1C x 1 Jun. 3. Essential hypertension Refuses to allow BP checks Currently on: metoprolol 25 mg bid isosorbide ER 30 mg daily will monitor for sx. of low BP, adjust m eds prn 4. Coronary arteriosclerosis No change with POC - Continue: clopidogrel 75 mg daily atorvastatin 80 mg daily metoprolol 25 mg bid isosorbide ER 30 mg daily ASA 81 mg daily will monitor CBC, CMP lipid panel x 1 in Jun. 5. Osteoarthritis APAP 650 mg q12h and [...] mRNA, LNP-S, PF, 30 mcg/0.3 mL dose ([employer]) 10/08/2020 10/29/2020 influenza, injectable, quadrivalent 06/28/2020 pneumococcal [...] medical power Y Notes: HCP invoked of sports attorney? What was the date of your 02/26/2020 most recent tobacco screening? Legal Guardian? N Do you have an advanced Y Notes: FULL [place] DE-use directive? dialysis, nutrition and hydration Do you or have you ever used Never used electronic e-cigarettes or vape? cigarettes Do you or have you ever used N any other forms of tobacco or nicotine? Functional Status Unknown. Past Encounters 06/25/2022 Dementia; Diabetes Mellitus; Essential H ypertension; Coronary Arteriosclerosis; Osteoarthritis Justine Cortez NP: [address] [place] [address], Ph. History of Present Illness Note: <div>Kylie is seen today for a routine visit. </div><div>
</div>< div>Since her last routine visit, she has had an uneventful interval hx. </div><div>Dementia - remains pleasantly confused, not on meds at this time for behaviors. </div><div>CV - CAD, HTN - no changes in meds, CP status stable. </div><div>DM - BS 100s - good control on current meds. </div><div>
</div><div>Case discussed with nsg., no new issues or concerns at this time. </div><div>
</div><div>Upon exam, Kylie is dressed, OOB in a recliner chair, alert, smiling, talking nonsensical, in good spirits. </div> Review of Systems ? Notes: <div>All others reviewed and negative unless otherwise stated in the HPI.</div> Physical Exam ? General Adult Exam Reported By: Patient Constitutional: General Appearance: healthy- appearing, well-developed. Level of Distress: NAD. Ambulation: i n wheelchair; in broda chair at time of visit Psychiatric: Insight: poor insight. Menta l Status: normal mood, normal affect, confused. Orientation: to pe rson, not oriented to time, not oriented to place. Memory: r ecent memory abnormal, remote memory abnormal Head: Head: normocephalic, atrauma tic Eyes: Lids and Conjunctivae: non-i njected. Sclerae: non-icteric ENMT: Hearing: no hearing loss Neck: Neck: supple Lungs: Auscultation: no wheezing, n o rales/crackles, no rhonchi; poor coop. with deep breath Cardiovascular: Heart Auscultation: RRR Abdomen: Bowel Sounds: soft, no guard ing, non-distended, no tenderness Musculoskeletal:: Extremities: no cyanosis, no edema. Joints, Bones, and Muscles (normal) normal movement of all extremities Neurologic: Cranial Nerves: grossly inta ct Skin: Inspection and palpation: no rash, no ulcer Notes: <div>04/17/22: WBC 5.7, H/H 1 1.8/38.1, plt 246, sodium 142, potassium 4.4, cr 0.74, BUN 27, glucose 92, a1c 6.8</div>
--- OUTSIDE RECORDS SUMMARY | 2022-07-01 17:53 | XMS_ITS | Encounter Summary ---
:1955 Author Care Team Providers Name Role Phone Day [place] (2nd Fl) OTHER [phone] Reason for Visit Acute Rounding Visit Assessment and Plan 1. Agitation due to dementia frequent, hard hand and finger biting r eported by nsg., staff concerned for further injury unclear as to why she is doing it referred to dentist to check if oral iss ue suspect more behavioral in nature - will refer to psych for eval For now, look into teething ring type pr oduct to see if she will bite this rather than her hands. Monitor. Discussion Note: None recorded.Patient educational handouts: No [...] mRNA, LNP-S, PF, 30 mcg/0.3 mL dose ([employer]) 10/08/2020 10/29/2020 influenza, injectable, quadrivalent 06/28/2020 pneumococcal conjugate PCV 13 08/09/2020 Social History Tobacco Smoking Status Unknown If Ever Smoked Has tobacco cessation N Notes: N/A as pt . doesn't counseling been provided? smoke What is your code status? Full Code How much tobacco do you chew? 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 What was the date of your 02/26/2020 most recent tobacco screening? Do you have an advanced Y Notes: FULL [place] DE-use directive? dialysis, nutrition and hydration Do you or have you ever used Never used electronic e-cigarettes or vape? cigarettes What is your level of alcohol None consumption? Do you or have you ever used Never used smokeless tobacco smokeless tobacco? On what date was tobacco Notes: N/A as pt. doesn't cessation counseling smoke provided? Legal Guardian? N Do you or have you ever used N any other forms of tobacco or nicotine? Functional Status Unknown. Past Encounters 05/02/2022 Agitation Due to Dementia Justine Cortez, CHIPPER: [address], [place] [address], Ph. History of Present Illness Note: <div>Kylie is seen today for an acute visit. </div><div>
</div><div>Nsg. reporting Kylie is frequently biting her hand and fingers repeatedly, quite hard at times.Concerned with injury due to hard biting. </div><div>? dental issue - referred to dentist. </div><div>? behavioral - has dementia, only on memantine currently.</div><div>Not followed by psych. </div><div>
</div> Review of Systems ? Notes: <div>All others reviewed and negative unless otherwise stated in the HPI.</div> Physical Exam ? General Adult Exam Reported By: Patient Constitutional: General Appearance: well-dev eloped. Level of Distress: NAD, chronically ill. Ambulation: in wheelchair; yunior for transfers; in recliner at time of visit Psychiatric: Insight: poor insight. Menta l Status: normal mood, normal affect, confused. Orientation: to pe rson, not oriented to time, not oriented to place. Memory: r ecent memory abnormal, remote memory abnormal Head: Head: normocephalic, atrauma tic Eyes: Lids and Conjunctivae: non-i njected. Sclerae: non-icteric ENMT: Hearing: no hearing loss Cardiovascular: Heart Auscultation: RRR Abdomen: Bowel Sounds: soft, non-dist ended, no tenderness Musculoskeletal:: Extremities: no cyanosis, no edema. Joints, Bones, and Muscles (normal) normal movement of all extremities Neurologic: Cranial Nerves: grossly inta ct Skin: Inspection and palpation: no rash; no obvious bite valerio found on hands upon exam, dose have m ild hand contractures Notes: <div>10/19/21: WBC 6.8, H/H 1 1.0/34.9, plt 291, sodium 139, potassium 4.5, cr 0.78, BUN 24, glucose 229, a1c 7.0</div><div>01/02/22 wbc 6.2 , hgb 10.7, plt 280, na 141, k 4.2, creat 0.74, gluc 33, A1c 7.0 </div>
[2022-07-01] MEDS: Sodium Chloride 0.45 % 1,000 ML 100 ML IVCONT (18:15)
[2022-07-01] MEDS: Heparin Sodium,Porcine 5,000 UNIT/ML VIAL 5000 UNIT SUBCUT (18:15)
--- NOTE | 2022-07-01 20:05 | PC.NURSE ---
Assumed care of pt. at 1900. Pt. sleeping in bed at this time. Will continue to monitor.
[2022-07-01 21:21] VITALS: BP 167/72; PULSE 64; RESP 15; TEMP 36.9; O2SAT 98
--- NOTE | 2022-07-01 23:06 | PC.NURSE ---
Pt. incontinent of urine and small amount of stool. Cleaned up and put on new johhnie and gave new warm blankets and repositioned in bed.
[2022-07-02] VITALS (7 sets, daily range): BP systolic 126–169; BP diastolic 61–92; PULSE 58–76; RESP 12–18; TEMP 36.2–37.3; O2SAT 94–100; BMI 20.5
[2022-07-02] MEDS: Heparin Sodium,Porcine 5,000 UNIT/ML VIAL 5000 UNIT SUBCUT ×3 (02:50→17:36)
[2022-07-02] MEDS: Sodium Chloride 0.45 % 1,000 ML 100 ML IVCONT (05:15)
--- NOTE | 2022-07-02 09:28 | MHC.CM.PN ---
Addendum entered by Aminata Evans RN 07/02/22 09:43: correction: no dc plan for today case management following for any changes in dc plan. Original Note: PATIENT IS LTC AT [facility] PLAN IS FOR RETURN TODAY CASE MANAGEMENT FOLLOWING AND WILL UPDATE
[2022-07-02] MEDS: Docusate Sodium 100 MG CAPSULE PO ×2 (09:38→20:55)
[2022-07-02] MEDS: Aspirin Enteric Coated 81 MG TABLET.DR PO (09:38)
[2022-07-02] MEDS: Clopidogrel Bisulfate 75 MG TABLET PO (09:38)
[2022-07-02] MEDS: Metoprolol Tartrate 25 MG TABLET PO ×2 (09:38→20:55)
[2022-07-02] MEDS: 0.9 % Sodium Chloride Flush 3 ML SYRINGE IVFLUSH ×3 (09:39→20:56)
[2022-07-02] MEDS: polyethylene glycoL 3350 17 GM POWD.PACK PO (09:39)
[2022-07-02 10:00] LABS: Anion Gap 19 (12-20); Blood Urea Nitrogen 11 mg/dL (9-16); Calcium 9.2 mg/dL (8.4-10.2); Carbon Dioxide 19 mmol/L (22-29); Chloride 106 mmol/L (96-108); Creatinine Clr Calc Pharmacy 65.5; Estimated Glomerular Filt Rate > 60; Glucose Random 77 mg/dL (60-115); Potassium 3.7 mmol/L (3.3-5.1); Sodium 140 mmol/L (135-145)
[2022-07-02] MEDS: Lidocaine 4 % Patch ADH..PATCH 1 PATCH TRANSDERMA (10:52)
[2022-07-02 12:05] LABS: Glucose, Whole Blood 75 mg/dL (60-115)
[2022-07-02] MEDS: Magnesium Oxide 400 MG TABLET PO ×2 (13:21→20:57)
--- NOTE | 2022-07-02 14:38 | HO.PM.IMPN ---
Subjective Subjective Date of Service: 07/02/22 Interval History: Toxic metabolic encephalopathy, UTI. Review of Systems Mental status seems improving No fever Physical Exam Vital Signs: Vital Signs: Last Vital Signs Temp 97.1 F 07/02/22 11:30 Pulse 58 07/02/22 11:30 Resp 18 07/02/22 11:30 BP 141/92 H 07/02/22 11:30 Pulse Ox 96 07/02/22 11:30 O2 Del Method 07/02/22 11:30 BMI result Body Mass Index 23.8 Appearance: Awake .? not in distress.? cvs: rrr, [id number] . res: clear to auscultation ,no rhonchii or wheezing abd: no rebound or guarding ,nt, bs present. ext pulses present , no cyanosis . neuro: moves all ext Objective Data Active Medications Acetaminophen (Acetaminophen 325 Mg Tablet) 650 mg PO Q12H PRN PRN Reason: Mild Pain (Scale Score 1-4) Acetaminophen (Acetaminophen Supp 325 Mg Supp.Rect) 650 mg CO Q6H PRN PRN Reason: Pain, Mild (Pain Scale 1-3) Aspirin (Aspirin Enteric Coated 81 Mg Tablet.) 81 mg PO DAILY [facility] Last Admin: 07/02/22 09:38 Dose: 81 mg Documented By: AYESHA Atorvastatin Calcium (Atorvastatin Calcium 80 Mg Tablet) 80 mg PO BEDTIME [facility] Bisacodyl (Bisacodyl 10 Mg Supp.Rect) 10 mg CO DAILY PRN PRN Reason: Constipation Clopidogrel Bisulfate (Clopidogrel Bisulfate 75 Mg Tablet) 75 mg PO DAILY [facility] Last Admin: 07/02/22 09:38 Dose: 75 mg Documented By: AYESHA Dextrose (Dextrose 50 % 25 Gm/50 Ml Syringe) 25 gm IVPUSH Q15M PRN; Protocol PRN Reason: per Hypoglycemia Standing Ord. Docusate Sodium (Docusate Sodium 100 Mg Capsule) 100 mg PO BID [facility] Last Admin: 07/02/22 09:38 Dose: 100 mg Documented By: AYESHA Glucose (Glucose Gel 15 Gm Gel..Gram.) 15 gm PO Q15M PRN; Protocol PRN Reason: per Hypoglycemia Standing Ord. Heparin Sodium (Porcine) (Heparin Sodium,Porcine 5,000 Unit/Ml Vial) 5,000 unit SUBCUT Q8H [facility] Last Admin: 07/02/22 09:38 Dose: 5,000 unit Documented By: AYESHA Insulin Human Lispro (Insulin Lispro 100 Unit/Ml 3 Ml Vial) 0 unit SUBCUT QIDACHS [facility]; Protocol Last Admin: 07/02/22 12:08 Dose: Not Given Documented By: AYESHA Non-Admin Reason: No Insulin Coverage Lidocaine (Lidocaine 4 % Patch Adh..Patch) 1 patch TRANSDERMA DAILY [facility]; Protocol Last Admin: 07/02/22 10:52 Dose: 1 patch Documented By: AYESHA Magnesium Hydroxide (Milk Of Magnesia 30 Ml Oral.Susp) 30 ml PO DAILY PRN PRN Reason: Constipation Magnesium Oxide (Magnesium Oxide 400 Mg Tablet) 400 mg PO DAILY@0700,1400,2000 [facility] Last Admin: 07/02/22 13:21 Dose: 400 mg Documented By: AYESHA Melatonin (Melatonin 3 Mg Tablet) 6 mg PO BEDTIME PRN PRN Reason: Insomnia Metoprolol Tartrate (Metoprolol Tartrate 25 Mg Tablet) 25 mg PO BID [facility]; Protocol Last Admin: 07/02/22 09:38 Dose: 25 mg Documented By: AYESHA Ondansetron HCl (Ondansetron Hcl 4 Mg/2 Ml Vial) 4 mg IVPUSH Q8H PRN PRN Reason: Nausea and Vomiting Pharmacy Consult (Consult Rx Perform Med Rec) 1 each MISCELLANE ONCE PRN PRN Reason: Consult order Pharmacy Consult (Consult Rx Perform Med Rec) 1 each MISCELLANE ONCE PRN PRN Reason: Consult order Polyethylene Glycol (Polyethylene Glycol 3350 17 Gm Powd.Pack) 17 gm PO DAILY [facility] Last Admin: 07/02/22 09:39 Dose: 17 gm Documented By: AYESHA Sodium Chloride (0.9 % Sodium Chloride Flush 3 Ml Syringe) 3 ml IVFLUSH QSHIFT [facility] Last Admin: 07/02/22 09:39 Dose: 3 ml Documented By: AYESHA Labs CBC & Chem 7: 07/01/22 11:39 07/02/22 09:19 Labs: Laboratory Results - last 24 hr 07/01/22 07/02/22 07/02/22 15:35 09:19 11:02 Anion Gap 19 Estim Creat Clear Calc 65.5 Estimated GFR > 60 POC Glucose 75 Random Glucose 77 Lactic Acid F/U @ 2Hr 1.5 Calcium 9.2 Microbiology Microbiology Results: Microbiology 07/01/22 12:20 Blood Culture - Preliminary Blood - Venous No growth after 24 hours. 07/01/22 11:39 Blood Culture - Preliminary Blood - Venous No growth after 24 hours. 07/01/22 00:00 Urine Culture - Final Urine Catheterized - Straight Catheter Assessment and Plan (1) Acute metabolic encephalopathy: Status: Acute (2) Acute UTI: Status: Acute Plan 67/F with [place] dementi, diabetes, hTN, h/o CAD recurent uti with metablic encephalopathy presenting AMS, hypotension that has now resolved and foud? to have UTI and toxic metabolic encephalopathy as source of confusion #Toxic metabolic encephalopath--d/t UTI doesn't meet sepsis criteria -Treat underlying UTI,encouarged po hydration #UTI- urine cultures -ecoli senstive to ceftriaxone blood cultures neg to 24 hrs continue ceftriaxone day2 #lactic acidosis-resolved with hydration. #HypErKalemia :improved. #HypOtension--lowest SBP here is 90, Hypotenison not due to sepsis #Diabetes--hold Metformin, -SSI, chec sugar per SS protocol hold coverage below 200. #HTN--BP is not low here and in fact presently hypertensive. Hold metoprolol, imdur for now and resume by morning if BP still high #CAD--no angina, continue lipitor, ASA, Plavix, metoprolo #HLD--Lipitor DVT: heparin inpatient need:toxicic metabolic encephalopathy due to UTI and need for IV antibiotics to halt progression to? sepsis and mortality Quality Stroke Does the patient have a stroke diagnosis?: No VTE Prior VTE?: No VTE Risk Level:: Medical - moderate - high VTE Device Contraindication: Treatment Not Indicated VTE Drug Contraindication: N/A - Med Ordered
[2022-07-02 15:49] LABS: Glucose, Whole Blood 151 mg/dL (60-115)
--- NOTE | 2022-07-02 17:00 | MHC.SL.SWA ---
Speech Pathologist Impression: Risk of Aspiration Due to: Reduced Cognition Dysphasia Diet Status: Patient presents with a mild oral phase dysphagia and is highly confused and impulsive, may miss-perceive foods and consistencies, putting her at risk for aspiration. Liquid Consistency and Strategies for Safe Swallow: Liquid Intake Recommendation: Thin Liquid Intake Strategies: Small Sips Solid Food Consistency: Dietary Recommendations: Grnd/Mech Altered (NDD2) Additional Modifications to Solid Foods: Patient is highly confused and impulsive, and will require 1-1 supervision and assistance at all meals due to this behavior. Patient is able to manage most consistencies, but degree of confusion/impulsivity puts her at risk for aspiration. Oral Medication Intake: Crushed with Puree Please contact the pharmacy regarding appropriate crushable or liquid drug formulations that are available whenever modified delivery is recommended. Compensatory Strategies and Precautions to be Taken for Safe Swallow: Sitting Upright (90 deg) Liquids from Cup Small Bites and Sips Alternate Liquids/Solids Supervision While Eating and Drinking for Safe Swallow: Total Supervision (1:1) Foods to Avoid: Avoid mixed consistencies, difficult to chew solids. Swallowing Recommended Treatments: Compens. Strategy Educat. Recommendation for Speech: Inpatient Speech Therapy Comment: Patient presents with a mild oral phase dysphagia, characterized by a disorganized pattern of food bolus transit. Patient is highly confused and impulsive, may miss-perceive foods and consistencies, putting her at risk for aspiration. Patient will require direct supervision and assistance at all meals due to this behavior. Recommend start diet consistency of Ground/Mechanical/Altered (NDD2) for easy to manage, predictable consistency, and THIN liquids, Pills crushed in puree. , RD notified of recommendation by secure text, RN notified in person. [employer] will follow for toleration of diet, re-assessment of swallow as needed. Frequency/Duration: Date Range for Service Req: Timeline to reassess: Vp Integration Clinican/Clinical Fellow: No Supervisory Statement: I have reviewed and agree with the student/clinical fellow's documentation: N/A Speech Language Pathologist: Zenaida Whyte M.A., [facility]-[employer]
[2022-07-02 20:16] LABS: Glucose, Whole Blood 237 mg/dL (60-115)
[2022-07-02] MEDS: Atorvastatin Calcium 80 MG TABLET PO (20:55)
[2022-07-02] MEDS: Melatonin 3 MG TABLET 6 MG PO (20:55)
[2022-07-02] MEDS: Insulin Lispro 100 UNIT/ML 3 ML VIAL SUBCUT (20:56)
[2022-07-03] MEDS: Heparin Sodium,Porcine 5,000 UNIT/ML VIAL 5000 UNIT SUBCUT ×2 (01:50→07:56)
[2022-07-03 03:14] VITALS: BP 123/79; PULSE 70; RESP 18; TEMP 36.6; O2SAT 100
[2022-07-03] MEDS: Magnesium Oxide 400 MG TABLET PO ×2 (05:59→13:45)
[2022-07-03 07:47] VITALS: BP 158/93; PULSE 70; RESP 16; TEMP 36.4; O2SAT 99
[2022-07-03 07:51] LABS: Glucose, Whole Blood 140 mg/dL (60-115)
[2022-07-03] MEDS: Metoprolol Tartrate 25 MG TABLET PO (07:55)
[2022-07-03] MEDS: polyethylene glycoL 3350 17 GM POWD.PACK PO (07:55)
[2022-07-03] MEDS: Lidocaine 4 % Patch ADH..PATCH 1 PATCH TRANSDERMA (07:55)
[2022-07-03] MEDS: Clopidogrel Bisulfate 75 MG TABLET PO (07:56)
[2022-07-03] MEDS: Aspirin Enteric Coated 81 MG TABLET.DR PO (07:56)
[2022-07-03] MEDS: 0.9 % Sodium Chloride Flush 3 ML SYRINGE IVFLUSH (07:57)
[2022-07-03 11:20] LABS: Glucose, Whole Blood 231 mg/dL (60-115)
[2022-07-03 11:28] VITALS: BP 152/85; PULSE 75; RESP 18; TEMP 36.1; O2SAT 92
[2022-07-03] MEDS: Insulin Lispro 100 UNIT/ML 3 ML VIAL SUBCUT (11:39)
--- NOTE | 2022-07-03 12:19 | PM.DS ---
DS: Providers Provider Date of Service: 07/03/22 Date of admission: 07/01/22 17:45 Primary care physician: Kendell Engel MD DS: Diagnosis Discharge Diagnosis (1) Acute metabolic encephalopathy: Status: Acute (2) Acute UTI: Status: Acute (3) Hyperkalemia: Status: Acute (4) Hypertension: Status: Acute DS: Summary Hospital Course Hospital Course: 67 year old female with from SNF with history of Alzheimer dementia,? Diabetes type 2, Hypertension, CAD with ? NSTEMI (non-ST elevated myocardial infarction) in the past? presenting with altered mental status. She reported in the morning was in her usual state and took her all her meds including BP meds and? shortly thereafter she was less responsive and noted to by hypotensive? and hypoxia. EMS reported BP of 90/50. WBC is normal, UA is grossly positive for UTI,? BMP is ok other K of 5.4, lactic 2.9,? sugar 200. Her blood pressure here has been at or above normal. She is somnolent but easily aroused now? doesn't really say much, she moves all extremity, no facial features or stroke. Head CT no acute pathology. Ceftriaxone is given for UTI. Hospital course: Patient was admitted for toxic metabolic encephalopathy secondary to possible UTI: Patient was started on IV antibiotics, reached out to rehab seems like at her baseline mental status, going back to the rehab with p.o. antibiotics. Further management outpatient as per rehab. Hyperkalemia: Seems to be resolved, consider low-potassium diet and monitor BMP outpatient in rehab. Initially blood pressure was softer side but seems to be improved, continue metoprolol for now. Consider adjusting metoprolol as per blood pressure. Time Spent with Patient Time attestation: Total time spent providing and/or coordinating discharge services: Discharge coordination time: Greater than 30 minutes Quality: Safe Use of Opioids Does Pt have an Active Cancer Diagnosis on the Problem List?: No Quality: Stroke Does the patient have a stroke diagnosis?: No Physical Exam Vital Signs: Vital Signs: Last Vital Signs Temp 97 F 07/03/22 11:28 Pulse 75 07/03/22 11:28 Resp 18 07/03/22 11:28 BP 152/85 H 07/03/22 11:28 Pulse Ox 92 07/03/22 11:28 O2 Del Method 07/03/22 11:28 BMI result Body Mass Index 20.5 Appearance: Awake .? not in distress.? cvs: rrr, [id number] . res: clear to auscultation ,no rhonchii or wheezing abd: no rebound or guarding ,nt, bs present. ext pulses present , no cyanosis . neuro: moves all ext DS: Data Data Completed and Pending Labs on day of discharge: Laboratory Results - last 24 hr 07/02/22 07/02/22 07/03/22 15:44 20:12 07:47 POC Glucose 151 H 237 H 140 H 07/03/22 11:13 POC Glucose 231 H Preliminary micro results at discharge 07/01/22 12:20 Blood Culture - Preliminary Blood - Venous No growth after 24 hours. 07/01/22 11:39 Blood Culture - Preliminary Blood - Venous No growth after [address]/CT head/brain wo IV con IMPRESSION: 1. No acute intracranial pathology. Blood Cult(2nd) Procedure Result Verified Site Blood Culture (Second) Preliminary 07/02/22-142 No growth after 24 hours. Discharge Plan Discharge Anticipated Discharge Date/Time: 07/03/22 12:09 Patient Disposition: Xfer SNF Discharge Diagnosis: Toxic metabolic encephalopathy possible secondary to UTI. Referrals: [facility] [Outside] - 1 Week Kendell Engel MD [Primary Care Provider] - 1 Week Discharge Medications: New cefuroxime axetil 250 mg tablet 250 mg PO Q12H Qty: 10 0RF Continued atorvastatin 80 mg Tablet 80 mg PO BEDTIME acetaminophen 325 mg Tablet 650 mg PO Q12H PRN (Reason: Mild Pain (Scale Score 1-4)) insulin glargine [Lantus U-100 Insulin] 100 unit/mL Solution 12 unit SUBCUT DAILY polyethylene glycol 3350 [Miralax] 17 gram Powder In Packet 17 g PO DAILY isosorbide mononitrate 30 mg Tablet Extended Release 24 Hr 30 mg PO DAILY clopidogrel 75 mg Tablet 75 mg PO DAILY magnesium hydroxide [Milk of Magnesia] 400 mg/5 mL Suspension 30 ml PO DAILY PRN (Reason: Constipation) bisacodyl 10 mg Suppository 10 mg MI DAILY PRN (Reason: Constipation) metformin 1,000 mg Tablet 1,000 mg PO BID docusate sodium 100 mg Capsule 100 mg PO BID metoprolol tartrate 25 mg Tablet 25 mg PO BID lidocaine 4 % Adhesive Patch,Medicated 1 patch TOPICAL DAILY aspirin 81 mg Tablet,Delayed Release (Dr/Ec) 81 mg PO DAILY magnesium 200 mg Tablet 400 mg PO DAILY@0700,1400,2000 Discharge Orders: Discharge Order (Routine); Ordered 07/03/22 Ordered By: Sil Hillman Diet: Advance to usual diet Activity on Discharge: As tolerated Stand Alone Forms: Patient Portal Discharge page Care Plan Goals: Patient was admitted for toxic metabolic encephalopathy secondary to possible UTI: Patient was started on IV antibiotics, reached out to rehab seems like at her baseline mental status, going back to the rehab with p.o. antibiotics. Further management outpatient as per rehab. Hyperkalemia: Seems to be resolved, consider low-potassium diet and monitor BMP outpatient in rehab. Initially blood pressure was softer side but seems to be improved, continue metoprolol for now. Consider adjusting metoprolol as per blood pressure. Health Concerns: As above. Plan of Treatment: Complete course of antibiotic, monitor BMP. Assessment: As above. Patient Instructions: Urinary Tract Infection in Older Adults (DC)
--- NOTE | 2022-07-03 13:08 | MHC.CM.PN ---
PATIENT IS RETURNING TO [facility] TO ARRIVE FOR 4 PM. HCP NOTIFIED BY VOICEMAIL. RN AND UNIT AWARE.
--- NOTE | 2022-07-03 13:41 | MHC.SL.SWA ---
Addendum entered and electronically signed by Janeen Arndt MA, [facility] 07/03/22 17:00: D.S. Original Note: Risk of Aspiration Due to: Reduced Cognition Dysphasia Diet Status: Patient presents with a mild oral phase dysphagia and is highly confused and impulsive, may miss-perceive foods and consistencies, putting her at risk for aspiration. Liquid Consistency and Strategies for Safe Swallow: Liquid Intake Recommendation: Thin Liquid Intake Strategies: Small Sips Solid Food Consistency: Dietary Recommendations: Pureed (NDD1) Additional Modifications to Solid Foods: Patient is highly confused and impulsive, and will require 1-1 supervision and assistance at all meals due to this behavior. Patient is able to manage most consistencies, but degree of confusion/impulsivity puts her at risk for aspiration. Oral Medication Intake: Crushed with Puree Please contact the pharmacy regarding appropriate crushable or liquid drug formulations that are available whenever modified delivery is recommended. Compensatory Strategies and Precautions to be Taken for Safe Swallow: Sitting Upright (90 deg) Alternate Liquids/Solids Rate of Ingestion Change Oral Check Supervision While Eating and Drinking for Safe Swallow: Total Assistance (1:1) Foods to Avoid: Avoid mixed consistencies, difficult to chew solids. Swallowing Recommended Treatments: Compens. Strategy Educat. Recommendation for Speech: Inpatient Speech Therapy Comment: This [facility] [employer] spoke to [facility], staff confirmed pt's baseline diet is pureed solids and thin liquids with pills crushed in puree. Pt seen for bedside dysphagia treatment this afternoon. RN was present providing 1:1 feed with lunch tray. RN reported pt taking exceedingly long time to chew. Upon palpation, pt presents with timely yet incomplete elevation. Pt tolerated sips of apple juice via straw with no overt s/s of aspiration. Note oral residue and prolonged mastication w/ puree and ground solids. At ties, pt observed to hold bolus in mouth for short time prior to swallowing. D/t pt's behavior of holding bolus in mouth, reduced cognition, and risk of aspiration recommend downgrade of solids. Recommend DOWNGRADE to PUREE (NDD1). Continue with THIN liquids and pills CRUSHED. Recommend dysphagia tx to monitor for s/s of aspiration and possible diet upgrade at next level of care. Stock Receiver Clinican/Clinical Fellow: Yes: Aletha Houser M.A., [facility]
[2022-07-03 15:26] VITALS: BP 125/61; PULSE 65; RESP 17; TEMP 36.6; O2SAT 99
[2022-07-03 15:34] LABS: Glucose, Whole Blood 122 mg/dL (60-115)
== END 2022-07-03 17:51 | disposition skilled nursing facility (03) | DRG 689 ==
LOC: HO.ED 15:03 → HO.EDOVER 17:52 → HO.S3 07-02 07:20
PROVIDERS: Physician Assistant; Admitting Provider Internal Medicine; Emergency Provider Emergency Medicine; PCP Family Medicine; Visit Provider Internal Medicine
DX: N39.0 Urinary tract infection, site not specified (principal); G92.8 Other toxic encephalopathy; E87.20 Acidosis, unspecified; G30.0 Alzheimer's disease with early onset; E78.5 Hyperlipidemia, unspecified; I10 Essential (primary) hypertension; E11.9 Type 2 diabetes mellitus without complications; Z86.73 Personal history of transient ischemic attack (TIA), and cerebral infarction without residual deficits; F02.80 Dementia in other diseases classified elsewhere, unspecified severity, without behavioral disturbance, psychotic disturbance, mood disturbance, and anxiety; I95.9 Hypotension, unspecified; E87.5 Hyperkalemia; I25.10 Atherosclerotic heart disease of native coronary artery without angina pectoris; I25.2 Old myocardial infarction; Z87.440 Personal history of urinary (tract) infections; Z79.4 Long term (current) use of insulin; Z79.82 Long term (current) use of aspirin; Z79.84 Long term (current) use of oral hypoglycemic drugs; Z79.899 Other long term (current) drug therapy
CPT/HCPCS: 36415; 70450; 71045; 80048; 80076; 80307; 81001; 82140; 82803; 82947; 83605; 83735; 83880; 84145; 84443; 84484; 85025; 85610; 85730; 87040; 87086; 87502; 87635; 92526; 92610; 93005; 96361; 96365; 99285; J0696